=== PATIENT | female | born 1950 | race Caucasian/White ===

== ENCOUNTER 2022-03-06 18:14 | Observation (INO) | payer OTHER, BC ==
[2022-03-06 20:14] LABS: Absolute Lymphocytes (CBC) 0.3 K/uL (0.7-4.9); Lymphocytes % 7.3 % (15.3-44.8); MCV 91.4 fL (80-100); MPV 6.4 fL (7.6-11.3)
[2022-03-06 20:28] LABS: Albumin 3.3 g/dL (3.4-5.0); Potassium 4.1 mmol/L (3.5-5.1)
[2022-03-06 20:35] LABS: ALT/SGPT 25 U/L (12-78); AST/SGOT 25 U/L (15-37); Alkaline Phosphatase 108 U/L (45-117); Bilirubin Direct 0.2 mg/dL (0-0.2); Bilirubin Total 0.5 mg/dL (0.2-1.0); Protein, Total 6.7 g/dL (6.4-8.2)
--- NOTE | 2022-03-06 20:35 | RAD REPORT ---
EXAM DESCRIPTION: RAD - Chest Single View - 03/06/2022 8:03 pm CLINICAL HISTORY: SI, lung cancer, COPD COMPARISON: None TECHNIQUE: AP portable chest image was obtained 03/06/2022 8:03 pm . FINDINGS: Left-sided Port-A-Cath is in place. Fibrotic lung changes are present. No superimposed alejandro lure, infiltrate or mass. Hilar regions are within range of normal. Heart and vasculature are normal. No measurable pleural effusion and no pneumothorax. No acute bony abnormality seen. No acute aortic findings suspected. IMPRESSION: COPD with no acute cardiopulmonary finding seen
[2022-03-06 20:36] LABS: Troponin High Sensitivity 19.4 pg/mL (<58.9)
[2022-03-06 20:40] LABS: Protime INR 0.99
--- NOTE | 2022-03-06 21:26 | ER ---
Nurse's Notes [facility] Name: Ginger Huerta Age: 71 yrs Sex: Female : 1950 Arrival Date: 03/06/2022 Time: 18:32 Bed 16 Private MD: Diagnosis: Major depressive disorder, recurrent, moderate;Suicidal ideations Presentation: 03/06 18:37 Chief complaint: EMS states: toned out to [facility] due to Suicidal Ideation. Pt was eh3 at [facility] for a consult, pt reports having liver and lung cancer. Pt states, "I do not want to go there, my family wants me to go to [facility]." Pt reports being actively suicidal. Coronavirus screen: At this time, the client does not indicate any symptoms associated with coronavirus-19. Ebola Screen: No symptoms or risks identified at this time. Initial Sepsis Screen: Does the patient meet any 2 criteria? No. Patient's initial sepsis screen is negative. Does the patient have a suspected source of infection? No. Patient's initial sepsis screen is negative. Risk Assessment: Do you want to hurt yourself or someone else? Patient reports desire/thoughts of hurting themselves or someone else. Provider notified. Onset of symptoms was March 06, 2022. 18:37 Method Of Arrival: EMS: [facility] 18:37 Acuity: LILIAN 2 eh3 Triage Assessment: 18:41 General: Appears in no apparent distress. comfortable, Behavior is calm, cooperative, eh3 appropriate for age. Pain: Denies pain. EENT: No signs and/or symptoms were reported regarding the EENT system. Neuro: Level of Consciousness is awake, alert, obeys commands, Oriented to person, place, time, situation. Cardiovascular: Capillary refill < 3 seconds Patient's skin is warm and dry. Respiratory: Airway is patent Respiratory effort is even, unlabored. GI: Abdomen is flat, non-distended. : No signs and/or symptoms were reported regarding the genitourinary system. Derm: No signs and/or symptoms reported regarding the dermatologic system. Musculoskeletal: No signs and/or symptoms reported regarding the musculoskeletal system. Historical: - Allergies: 18:41 Benadryl; eh3 - Home Meds: 18:41 levothyroxine 100 mcg cap 1 cap once daily [Active]; Zyrtec 5 mg Oral tab 1 tab once eh3 daily [Active]; albuterol sulfate 2.5 mg/0.5 mL Inhl nebu 0.5 mL every 6 hours [Active]; rosuvastatin 5 mg oral tab 1 tab once daily [Active]; sertraline 100 mg oral tab 1 tab once daily [Active]; furosemide 20 mg Oral tab 1 tab once daily [Active]; trazodone 50 mg Oral tab 1 tab once daily [Active]; olanzapine 5 mg oral tab 1 tab once daily [Active]; donepezil 5 mg oral TbDi 1 tab once daily [Active]; tramadol 50 mg Oral tab 2 tabs every 6 hours [Active]; hydrocodone-acetaminophen 7.5-325 mg/15 mL Oral soln 15 mL every 4 hours [Active]; - PMHx: 18:41 COPD; Lung Cancer; Liver Cancer; Hypercholesterolemia; Depressive disorder; Anxiety; eh3 - PSHx: 18:41 Total abdominal hysterectomy; eh3 - Immunization history:: Adult Immunizations up to date, Client reports receiving the 2nd dose of the Covid vaccine. - Social history:: Smoking status: Patient reports the use of cigarette tobacco products, smokes one pack cigarettes per day. Patient/guardian denies using alcohol. - Family history:: not pertinent. Screenin:06 Abuse screen: na. Nutritional screening: No deficits noted. Tuberculosis screening: No ja4 symptoms or risk factors identified. Fall Risk None identified. Assessment: 21:06 General: Appears in no apparent distress. Behavior is calm, cooperative, Reports. ja4 Neuro: No deficits noted. Respiratory: No deficits noted. 03/07 03:39 Reassessment: pt resting in bed. no needs or issues at this time. ja4 05:11 Reassessment: barb from [facility] in [place] trying to give report and when ja4 told pt was on o2 intermittently pt has been refused for transfer there at the facility. provider will be notified. 05:39 Reassessment: beto from [facility] called for nurse to nurse report. 4 06:55 Reassessment: pt has been excepted to [facility]. 4 Psych: 03/06 21:20 [place] Suicide Severity Screening: In the past month, have you wished you were ja4 or wished you could go to sleep and not wake up? "In the past month, have you actually had any thoughts of killing yourself?" Patient responds "yes.". Subjective: Having thoughts of suicide. Plan for suicide is stab self or use pavement to kill self. Objective: Patient is cooperative, Speech is normal, Affect is appropriate. Interventions: Patient placed in hospital gown. Urine collected and sent for urine drug test. Safety Checks: Visitors are present. Pt denies substance abuse. Commitment: Patient will be a voluntary commitment. Vital Signs: 18:37 BP 112 / 61; Pulse 81; Resp 18; Temp 97.4(TE); Pulse Ox 97% on R/A; Weight 48.08 kg; eh3 Height 5 ft. 6 in. (167.64 cm); Pain 0/10; 03/07 02:31 BP 143 / 70; Pulse 78; Resp 19; Pulse Ox 100% 2 lpm ; ja4 05:04 BP 121 / 60; Pulse 88; Resp 20; Pulse Ox 98% on 2 lpm NC; ja4 03/06 18:37 Body Mass Index 17.11 (48.08 kg, 167.64 cm) eh3 [place] Coma Score: 03/06 21:06 Eye Response: spontaneous(4). Verbal Response: oriented(5). Motor Response: obeys ja4 commands(6). Total: 15. ED Course: 18:32 Patient arrived in ED. iw 18:41 Triage completed. eh3 18:41 Arm band placed on right wrist. Patient placed. EKG completed in triage. Results shown eh3 to MD. 19:43 Inserted saline lock: 20 gauge in right upper arm, using aseptic technique. Blood ld1 collected. 19:44 Riley Lomax MD is Attending Physician. [facility] 20:05 XRAY Chest (1 view) In Process Unspecified. EDMS 20:07 Joel Caceres, SRINIVASA is Primary Nurse. ja4 21:06 Safety Checks: Personal items have been removed. The door is open or patient has been ja4 placed in a hallway bed/chair. A family member and/or friend is present and encouraged to stay. 21:06 Patient has correct armband on for positive identification. Bed in low position. Side ja4 rails up X2. Adult w/ patient. 21:06 No provider procedures requiring assistance completed. Oxygen administration via nasal ja4 cannula \\T\\ 2L/min. 21:23 Suha Hawkins MD is Hospitalizing Provider. [facility] 21:59 Salicylate Sent. ja4 21:59 Urine Drug Screen Sent. ja 03/07 01:50 Initiated transfer to [facility] and denied due to capacity. 02:31 campus monitor on. Pulse ox on. NIBP on. ja4 04:30 Faxed all required documents to the following facilities to consider for placement; [facility], [facility], [facility], [facility], [facility], [facility], [facility], [facility], [facility], [facility]. 05:57 Pt. accepted for transfer by Dr. Nenita Rod at [facility], admin in charge, Alex Cochran. 07:52 Primary Nurse role handed off by Joel Caceres, RN lyn 07:52 Diane Barrientos RN is Primary Nurse. [facility] 08:57 IV discontinued, intact, bleeding controlled, No redness/swelling at site. Pressure jl7 dressing applied. Administered Medications: 03/06 21:59 Drug: NS 0.9% 500 ml Route: IV; Rate: bolus; Site: right antecubital; ja4 Medication: 21:06 VIS not applicable for this client. [facility] Outcome: 21:25 Decision to Hospitalize by Provider. [facility] 03/07 01:05 Admitted to ER Hold. Please see [facility] for further documentation. [facility] Condition: stable 01:42 ER care complete, transfer ordered by . [facility] 08:57 Transferred by ground EMS to other acute care facility: [facility]. [facility] 08:57 Condition: stable 08:57 Discharge instructions given to patient, family, Instructed on the need for transfer, Demonstrated understanding of instructions. 08:58 Patient left the ED. jl7 Signatures: Dispatcher [employer] EDMS Riley Lomax MD MD cha Williams, Irene, SIRNIVASA BERNABE Diane Barrientos RN RN jl7 Stacy Hodge RN RN [email or web address] Alejandra Camp Chen Starr RN RN 3 Joel Caceres, SRINIVASA RN ja4 Corrections: (The following items were deleted from the chart) 03/06 18:46 18:41 Allergies: No Known Allergies; eh3 eh3 18:49 18:37 Pulse 81bpm; Resp 18bpm; Pulse Ox 97% RA; Temp 97.4F Temporal; 48.08 kg; Height 5 eh3 ft. 6 in.; BMI: 17.1; Pain 0/10; 3
--- NOTE | 2022-03-06 21:26 | EDPHYS ---
Physician Documentation [facility] Name: Ginger Huerta Age: 71 yrs Sex: Female : 1950 Arrival Date: 03/06/2022 Time: 18:32 Bed 16 Private MD: ED Physician Rilye Lomax HPI: 03/06 21:17 This 71 yrs old Female presents to ER via EMS with complaints of Suicidal tianna Ideation. 21:17 The patient presents to the emergency department with depression, suicide ideation, and tianna the patient has a plan, to cut oneself and bleed. Onset: The symptoms/episode began/occurred 1 week(s) ago. Past psychiatric history: Prior diagnosis: depression. Associated signs and symptoms: Pertinent positives; depression, lung cancer , depression. Severity of symptoms: At their worst the symptoms were mild in the emergency department the symptoms are unchanged. The patient has not experienced similar symptoms in the past. Historical: - Allergies: 18:41 Benadryl; eh3 - Home Meds: 18:41 levothyroxine 100 mcg cap 1 cap once daily [Active]; Zyrtec 5 mg Oral tab 1 tab once eh3 daily [Active]; albuterol sulfate 2.5 mg/0.5 mL Inhl nebu 0.5 mL every 6 hours [Active]; rosuvastatin 5 mg oral tab 1 tab once daily [Active]; sertraline 100 mg oral tab 1 tab once daily [Active]; furosemide 20 mg Oral tab 1 tab once daily [Active]; trazodone 50 mg Oral tab 1 tab once daily [Active]; olanzapine 5 mg oral tab 1 tab once daily [Active]; donepezil 5 mg oral TbDi 1 tab once daily [Active]; tramadol 50 mg Oral tab 2 tabs every 6 hours [Active]; hydrocodone-acetaminophen 7.5-325 mg/15 mL Oral soln 15 mL every 4 hours [Active]; - PMHx: 18:41 COPD; Lung Cancer; Liver Cancer; Hypercholesterolemia; Depressive disorder; Anxiety; eh3 - PSHx: 18:41 Total abdominal hysterectomy; eh3 - Immunization history:: Adult Immunizations up to date, Client reports receiving the 2nd dose of the Covid vaccine. - Social history:: Smoking status: Patient reports the use of cigarette tobacco products, smokes one pack cigarettes per day. Patient/guardian denies using alcohol. - Family history:: not pertinent. ROS: 21:17 Constitutional: Negative for fever, chills, and weight loss, Eyes: Negative for injury, tianna pain, redness, and discharge, ENT: Negative for injury, pain, and discharge, Neck: Negative for injury, pain, and swelling, Cardiovascular: Negative for chest pain, palpitations, and edema, Respiratory: Negative for shortness of breath, cough, wheezing, and pleuritic chest pain, Abdomen/GI: Negative for abdominal pain, nausea, vomiting, diarrhea, and constipation, Back: Negative for injury and pain, : Negative for injury, bleeding, discharge, and swelling, MS/Extremity: Negative for injury and deformity, Skin: Negative for injury, rash, and discoloration, Neuro: Negative for headache, weakness, numbness, tingling, and seizure, Endocrine: Negative for neck swelling, polydipsia, polyuria, polyphagia, and marked weight changes, Hematologic/Lymphatic: Negative for swollen nodes, abnormal bleeding, and unusual bruising. 21:17 Psych: Positive for anxiety, depression, suicidal ideation. Exam: 21:17 Constitutional: This is a well developed, well nourished patient who is awake, alert, tianna and in no acute distress. Head/Face: Normocephalic, atraumatic. Eyes: Pupils equal round and reactive to light, extra-ocular motions intact. Lids and lashes normal. Conjunctiva and sclera are non-icteric and not injected. Cornea within normal limits. Periorbital areas with no swelling, redness, or edema. ENT: Nares patent. No nasal discharge, no septal abnormalities noted. Tympanic membranes are normal and external auditory canals are clear. Oropharynx with no redness, swelling, or masses, exudates, or evidence of obstruction, uvula midline. Mucous membranes moist. Neck: Trachea midline, no thyromegaly or masses palpated, and no cervical lymphadenopathy. Supple, full range of motion without nuchal rigidity, or vertebral point tenderness. No Meningismus. Chest/axilla: Normal chest wall appearance and motion. Nontender with no deformity. No lesions are appreciated. Cardiovascular: Regular rate and rhythm with a normal S1 and S2. No gallops, murmurs, or rubs. Normal PMI, no JVD. No pulse deficits. Abdomen/GI: Soft, non-tender, with normal bowel sounds. No distension or tympany. No guarding or rebound. No evidence of tenderness throughout. Back: No spinal tenderness. No costovertebral tenderness. Full range of motion. Skin: Warm, dry with normal turgor. Normal color with no rashes, no lesions, and no evidence of cellulitis. MS/ Extremity: Pulses equal, no cyanosis. Neurovascular intact. Full, normal range of motion. Neuro: Awake and alert, GCS 15, oriented to person, place, time, and situation. Cranial nerves II-XII grossly intact. Motor strength 5/5 in all extremities. Sensory grossly intact. Cerebellar exam normal. Normal gait. 21:17 ECG was reviewed by the Attending Physician. 21:17 Respiratory: the patient does not display signs of respiratory distress, Respirations: normal, no acute changes, is not noted, Breath sounds: rhonchi, that are mild, Respiratory rate: 18 Vital Signs: 18:37 BP 112 / 61; Pulse 81; Resp 18; Temp 97.4(TE); Pulse Ox 97% on R/A; Weight 48.08 kg; eh3 Height 5 ft. 6 in. (167.64 cm); Pain 0/10; 08 02:31 BP 143 / 70; Pulse 78; Resp 19; Pulse Ox 100% 2 lpm ; ja4 05:04 BP 121 / 60; Pulse 88; Resp 20; Pulse Ox 98% on 2 lpm NC; ja4 03/06 18:37 Body Mass Index 17.11 (48.08 kg, 167.64 cm) eh3 [place] Coma Score: 03/06 21:06 Eye Response: spontaneous(4). Verbal Response: oriented(5). Motor Response: obeys ja4 commands(6). Total: 15. MDM: 19:44 Patient medically screened. [facility] 21:22 Differential diagnosis: drug withdrawal. depression. Data reviewed: vital signs, nurses tianna notes, lab test result(s), EKG. Data interpreted: nurse monitoring: not applicable for this patient encounter. rhythm is regular, Pulse oximetry: on room air is 97 %. Test interpretation: by ED physician or midlevel provider: ECG. Counseling: I had a detailed discussion with the patient and/or guardian regarding: the historical points, exam findings, and any diagnostic results supporting the discharge/admit diagnosis, lab results, the need for further work-up and treatment in the hospital. 03/06 19:31 Order name: Basic Metabolic Panel; Complete Time: 21: [facility] 03/06 19:31 Order name: CBC with Diff; Complete Time: 21: [facility] 03/06 19:31 Order name: Troponin HS; Complete Time: 21: [facility] 03/06 19:46 Order name: Acetaminophen; Complete Time: 21: [facility] 03/06 19:46 Order name: ETOH Level; Complete Time: 21: [facility] 03/06 19:46 Order name: Hepatic Function; Complete Time: 21: [facility] 03/06 19:31 Order name: XRAY Chest (1 view); Complete Time: : [facility] 03/06 19:46 Order name: PT-INR; Complete Time: 21: [facility] 03/06 19:46 Order name: Ptt, Activated; Complete Time: 21: [facility] 03/06 19:46 Order name: Salicylate; Complete Time: 23:12 [facility] 03/06 19:46 Order name: Urine Drug Screen; Complete Time: 23:12 [facility] 03/06 22:10 Order name: Urine Dipstick-Ancillary; Complete Time: 23:12 [facility] 03/07 01:55 Order name: SARS RAPID 03/07 02:46 Order name: SARS-COV-2 Antigen Rapid; Complete Time: 07:33 [facility] 03/06 18:48 Order name: EKG - Nurse/Tech; Complete Time: 18:48 [facility] 03/06 19:31 Order name: EKG; Complete Time: 19:33 [facility] 03/06 19:31 Order name: Cardiac monitoring; Complete Time: 21:32 [facility] 03/06 19:31 Order name: EKG - Nurse/Tech; Complete Time: 19:32 [facility] 03/06 19:31 Order name: IV Saline Lock; Complete Time: 19:43 [facility] 03/06 19:31 Order name: Labs collected and sent; Complete Time: 19:43 [facility] 03/06 19:31 Order name: O2 Per Protocol; Complete Time: 21:32 [facility] 03/06 19:31 Order name: O2 Sat Monitoring; Complete Time: 21:32 [facility] 03/06 19:46 Order name: Suicide Screening ([place]); Complete Time: 03:44 [facility] 03/06 19:46 Order name: Urine Dipstick-Ancillary (obtain specimen); Complete Time: 03:16 tianna 03/06 19:46 Order name: Suicide Precautions; Complete Time: 07:52 [facility] 03/07 07:29 Order name: Diet Finger Food; Complete Time: 07:34 EC:17 Rate is 77 beats/min. Rhythm is regular. QRS [place] is Normal. AL interval is normal. QRS tianna interval is normal. QT interval is normal. No Q waves. T waves are Normal. Clinical impression: Normal ECG and No evidence of ischemia. Interpreted by me. Reviewed by me. Administered Medications: 21:59 Drug: NS 0.9% 500 ml Route: IV; Rate: bolus; Site: right antecubital; ja4 Disposition Summary: 03/07/22 01:42 Transfer Ordered Transfer Location: Psych Facility tianna Reason: Higher level of care tianna Condition: Fair(03/07/22 01:42) tianna Problem: new(03/07/22 01:42) tianna Symptoms: have improved(03/07/22 01:42) tianna Accepting Physician: TO PSYCH(03/07/22 08:58) jlHeide Diagnosis - Major depressive disorder, recurrent, moderate(03/07/22 01:42) tianna - Suicidal ideations(03/07/22 01:42) tianna Forms: - Medication Reconciliation Form tianna - SBAR form tianna Signatures: Dispatcher [employer] EDMS Riley Lomax MD MD cha Leal, Jahala RN RN jl7 Sharla Fernandez RN RN eb1 Stacy Hodge RN RN [email or web address] Belle Carias PA PA sb3 Chen Starr RN RN eh3 Joel Caceres, RN RN ja4 Corrections: (The following items were deleted from the chart) 18:46 18:41 Allergies: No Known Allergies; 3 3 22:23 21:25 Telemetry/MedSurg (observation) [facility] 22:23 21:25 tianna 1 03/07 01:41 03/06 21:25 Observation tianna [facility] 03/07 01:41 03/06 21:25 HawkinsNelly corteslaura [facility] 03/07 01:41 03/06 21:25 Fair [facility] 03/07 01:41 03/06 21:25 new [facility] 03/07 01:03/06 21:25 have improved tianna [facility] 03/07 01:03/06 21:25 Standard tianna [facility] 03/07 01:03/06 21:25 Major depressive disorder, recurrent, moderate tianna [facility] 03/07 01:03/06 21:25 Dementia in other diseases classified elsewhere without behavioral tianna disturbance [facility] 03/07 01:03/06 21:25 Suicidal ideations tianna [facility] 03/07 01:03/06 22:23 [facility] ER HOLD eb1 [facility] 03/07 01:03/06 22:23 ERHOLD- eb1 [facility] 03/07 08:58 01:42 TO PSYCH tianna jl7
[2022-03-06] MEDS ORDERED: NA CHLORIDE 0.9% 500 ML ONE (21:40)
[2022-03-06 22:10] LABS: Urine Blood Negative (Negative); Urine Glucose Negative (Negative); Urine Protein Negative (Negative)
[2022-03-06 22:32] LABS: Barbiturates NEGATIVE (NEGATIVE); Benzodiazepines NEGATIVE (NEGATIVE); Cocaine NEGATIVE (NEGATIVE); METHAMPHETAM NEGATIVE (NEGATIVE); Methadone NEGATIVE (NEGATIVE); Opiates NEGATIVE (NEGATIVE); Phencyclidine NEGATIVE (NEGATIVE); THC Cannibis NEGATIVE (NEGATIVE)
--- NOTE | 2022-03-07 00:18 | P.HP ---
Certification for Inpatient Patient admitted to: Observation With expected LOS: <2 Midnights Patient will require the following post-hospital care: None Practitioner: I am a practitioner with admitting privileges, knowledge of patient current condition, hospital course, and medical plan of care. Services: Services provided to patient in accordance with Admission requirements found in Title 42 Section 412.3 of the Code of Federal Regulations Patient History Date of Service: 03/07/22 Reason for admission: Suicidal Ideations Allergies No Known Allergies Allergy (Verified 11/07/15 09:12) Home medications list reviewed: Yes Home Medications: Cetirizine HCl [Zyrtec] 5 mg PO DAILY PRN 11/07/15 Levothyroxine Sodium [Unithroid] 50 mcg PO DAILY 11/07/15 lisinopriL [Prinivil] 5 mg PO DAILY 11/07/15 - Past Medical/Surgical History Diabetic: No -: Lung Cancer -: Liver Cancer -: Hypothyroidism -: Major Depressive Disorder -: Hypertension -: COPD -: Hysterectomy Psychosocial/ Personal History: Patient [facility]. - Family History Family History: Reviewed- Non-Contributory - Social History Smoking Status: Current every day smoker Alcohol use: No CD- Drugs: No Caffeine use: Yes Place of Residence: Home Review of Systems Suicidal Physical Examination - Physical Exam General: Alert, Oriented x3 HEENT: Atraumatic, PERRLA, Mucous membr. moist/pink, EOMI, Sclerae nonicteric Neck: Supple, No LAD Respiratory: Clear to auscultation bilaterally, Normal air movement Cardiovascular: Regular rate/rhythm, Normal S1 S2 Gastrointestinal: Normal bowel sounds, No tenderness Musculoskeletal: No tenderness Integumentary: No rashes Neurological: Normal speech, Normal strength at 5/5 x4 extr, Normal tone, Normal affect - Studies Laboratory Data (last 24 hrs) 03/06/22 19:46: WBC 4.6, Hgb 11.0 L, Hct 32.0 L, Plt Count 217 03/06/22 19:46: Sodium 136, Potassium 4.1, BUN 13, Creatinine 0.92, Glucose 98 03/06/22 19:46: PT 10.9, INR 0.99, APTT 35.5 03/06/22 19:46: Total Bilirubin 0.5, AST 25, ALT 25, Alkaline Phosphatase 108 Assessment and Plan - Problems (Diagnosis) (1) Suicidal ideations Current Visit: Yes Status: Acute (2) Major depressive disorder Current Visit: Yes Status: Acute Qualifiers: Major depression recurrence: recurrent Active/Remission status: currently active Major depression episode severity: severe Psychotic features: with psychotic features Qualified Code(s): F33.3 - Major depressive disorder, recurrent, severe with psychotic symptoms (3) COPD (chronic obstructive pulmonary disease) Current Visit: Yes Status: Chronic Qualifiers: COPD type: unspecified COPD Qualified Code(s): J44.9 - Chronic obstructive pulmonary disease, unspecified (4) Hypothyroidism Current Visit: Yes Status: Chronic Qualifiers: Hypothyroidism type: acquired Qualified Code(s): E03.9 - Hypothyroidism, unspecified (5) Hypertension Current Visit: Yes Status: Chronic Qualifiers: Hypertension type: primary hypertension Qualified Code(s): I10 - Essential (primary) hypertension (6) Lung cancer Current Visit: Yes Status: Chronic Qualifiers: Laterality: unspecified laterality Lung location: unspecified part of lung Qualified Code(s): C34.90 - Malignant neoplasm of unspecified part of unspecified bronchus or lung (7) Liver cancer Current Visit: Yes Status: Chronic Qualifiers: Liver malignancy type: unspecified liver malignancy Qualified Code(s): C22.9 - Malignant neoplasm of liver, not specified as primary or secondary Discharge Plan: Other Plan to discharge in: 24 Hours - Advance Directives Does patient have a Living Will: No Does patient have a Durable POA for Healthcare: Yes - Code Status/Comfort Care Code Status Assessed: Yes (Full) Critical Care: No Time Spent Managing Pts Care (In Minutes): 50
--- NOTE | 2022-03-07 00:58 | P.CNS ---
Date of Consult: 03/07/22 Reason for Consult: Medical Management Chief Complaint: Suicidal Ideations Allergies No Known Allergies Allergy (Verified 11/07/15 09:12) Home medications list reviewed: Yes Home Medications: Cetirizine HCl [Zyrtec] 5 mg PO DAILY PRN 11/07/15 Levothyroxine Sodium [Unithroid] 50 mcg PO DAILY 11/07/15 lisinopriL [Prinivil] 5 mg PO DAILY 11/07/15 - Past Medical/Surgical History -: COPD -: Liver Cancer -: Lung Cancer -: Hypertension -: Hypothyroidism -: Hyperlipidemia -: Hysterectomy Psychosocial/ Personal History: Patient is . - Social History Smoking Status: Current every day smoker Alcohol use: No CD- Drugs: No Caffeine use: Yes Place of Residence: Home Review of Systems 10-point ROS is otherwise unremarkable Physical Examination General: Alert, In no apparent distress HEENT: Atraumatic, PERRLA, Mucous membr. moist/pink, EOMI, Sclerae nonicteric Neck: Supple, 2+ carotid pulse no bruit, No LAD, Without JVD or thyroid abnormality Respiratory: Clear to auscultation bilaterally, Normal air movement Cardiovascular: Regular rate/rhythm, Normal S1 S2 Gastrointestinal: Normal bowel sounds, No tenderness Musculoskeletal: No tenderness Integumentary: No rashes Neurological: Normal gait, Normal speech, Normal tone, Abnormal affect Laboratory Data (last 24 hrs) 03/06/22 19:46: WBC 4.6, Hgb 11.0 L, Hct 32.0 L, Plt Count 217 03/06/22 19:46: Sodium 136, Potassium 4.1, BUN 13, Creatinine 0.92, Glucose 98 03/06/22 19:46: PT 10.9, INR 0.99, APTT 35.5 03/06/22 19:46: Total Bilirubin 0.5, AST 25, ALT 25, Alkaline Phosphatase 108 - Problems (1) Suicidal ideations Current Visit: Yes Status: Acute (2) Major depressive disorder Current Visit: Yes Status: Acute Qualifiers: Major depression recurrence: recurrent Active/Remission status: currently active Major depression episode severity: severe Psychotic features: with psychotic features Qualified Code(s): F33.3 - Major depressive disorder, recurrent, severe with psychotic symptoms (3) COPD (chronic obstructive pulmonary disease) Current Visit: Yes Status: Chronic Qualifiers: COPD type: unspecified COPD Qualified Code(s): J44.9 - Chronic obstructive pulmonary disease, unspecified (4) Hypothyroidism Current Visit: Yes Status: Chronic Qualifiers: Hypothyroidism type: acquired Qualified Code(s): E03.9 - Hypothyroidism, unspecified (5) Hypertension Current Visit: Yes Status: Chronic Qualifiers: Hypertension type: primary hypertension Qualified Code(s): I10 - Essential (primary) hypertension (6) Lung cancer Current Visit: Yes Status: Chronic Qualifiers: Laterality: unspecified laterality Lung location: unspecified part of lung Qualified Code(s): C34.90 - Malignant neoplasm of unspecified part of unspecified bronchus or lung (7) Liver cancer Current Visit: Yes Status: Chronic Qualifiers: Liver malignancy type: unspecified liver malignancy Qualified Code(s): C22.9 - Malignant neoplasm of liver, not specified as primary or secondary Critical Care: No Time Spent Managing Pts care (In Minutes): 50
[2022-03-07 01:27] VITALS: BMI 14.2
[2022-03-07 02:45] LABS: SARS-CoV-2 Antigen Rapid Res Negative (Negative)
[2022-03-07 09:12] VITALS: TEMP 97.4
[2022-03-07 09:20] VITALS: BP 121/60; O2SAT 98
--- NOTE | 2022-03-07 14:32 | EKG ---
Test Date: 2022-03-06 Test Time: 18:49:09 Keyboard Teacher: TORI MEASUREMENT RESULTS: Intervals: Rate: 77 NV: 152 QRSD: 80 QT: 390 QTc: 441 [place]: P: 85 NV: 152 QRS: 86 T: 88 INTERPRETIVE STATEMENTS: Normal sinus rhythm Normal ECG Compared to ECG 04/15/1994 08:29:00 No significant changes Electronically Signed On 03-07-22 14:30:33 CDT by Sav Asher
== END 2022-03-07 09:22 ==
LOC: ER 18:14 → ERHOLD 03-07 00:11
PROVIDERS: ADMIT Hospitalist; ATTEND Hospitalist
DX: F33.1 Major depressive disorder, recurrent, moderate (principal); R45.851 Suicidal ideations; C34.90 Malignant neoplasm of unspecified part of unspecified bronchus or lung; C22.8 Malignant neoplasm of liver, primary, unspecified as to type; J44.9 Chronic obstructive pulmonary disease, unspecified; F41.9 Anxiety disorder, unspecified; E78.00 Pure hypercholesterolemia, unspecified; F17.210 Nicotine dependence, cigarettes, uncomplicated; Z79.899 Other long term (current) drug therapy; Z88.8 Allergy status to other drugs, medicaments and biological substances; Z90.710 Acquired absence of both cervix and uterus; Z20.822 Contact with and (suspected) exposure to COVID-19
CPT/HCPCS: 36415; 71045; 80048; 80076; 80307; 80320; 80329; 81003; 84484; 85025; 85610; 85730; 87811; 93005; J7040

== ENCOUNTER 2022-08-09 19:27 | Inpatient (IN) | payer OTHER, BC ==
[2022-08-09] MEDS ORDERED: LEVALBUTEROL 1.25 MG/3 ML NEB ONE (19:53)
[2022-08-09 19:54] LABS: Absolute Lymphocytes (CBC) 0.2 K/uL (0.7-4.9); Hematocrit 32.4 % (36.0-45.0); Lymphocytes % 1.8 % (15.3-44.8); MCV 94.6 fL (80-100); MPV 6.5 fL (7.6-11.3); RBC Red Blood Cell Count 3.43 M/uL (3.86-4.86)
[2022-08-09 20:08] LABS: Potassium 3.6 mmol/L (3.5-5.1)
[2022-08-09 20:12] LABS: Troponin High Sensitivity 23.1 pg/mL (<58.9)
--- NOTE | 2022-08-09 20:18 | RAD REPORT ---
EXAM DESCRIPTION: Emmy Single View08/09/2022 8:10 pm CLINICAL HISTORY: Shortness of breath COMPARISON: February 2022 FINDINGS: Lungs are markedly hyperaerated. Patient's known small right lung lesion not clearly visualized on this exam. Mild chronic opacities medial right lung. The lungs appear clear of acute infiltrate. The heart is n ormal size Central venous catheter in place IMPRESSION: COPD without visualization of an acute abnormality
[2022-08-09] MEDS ORDERED: NA CHLORIDE 0.9% 500 ML ONE (20:58)
[2022-08-09 21:11] LABS: Blood Morphology Comment NOT SEEN (NOT SEEN); Platelet Estimate ADEQ
[2022-08-09 21:12] LABS: Arterial Blood Carboxyhemoglob 5.4 % (0-1.5); Blood Gas Oxyhemoglobin 85.7 % (94-97); Blood O2 Saturation 91.6 % (92-98.5)
[2022-08-09 21:30] LABS: T3 Free 0.64 pg/mL (2.18-3.98); Thyroid Stimulating Hormone 0.977 uIU/mL (0.358-3.740)
--- NOTE | 2022-08-09 22:06 | ER ---
Nurse's Notes [facility] Name: Ginger Huerta Age: 71 yrs Sex: Female : 1950 Arrival Date: 08/09/2022 Time: 19:28 Bed 3 Private MD: Diagnosis: Shortness of breath;Weakness;Diarrhea, unspecified;Dehydration Presentation: 08/09 19:29 Chief complaint: EMS states: Pt reports shortness of breath for the past few days. Was jb4 81% on 3L NC. she has a 20g IV to the right fore arm. History of stage 4 lung cancer. Coronavirus screen: At this time, the client does not indicate any symptoms associated with coronavirus-19. Ebola Screen: No symptoms or risks identified at this time. Initial Sepsis Screen: Does the patient meet any 2 criteria? HR > 90 bpm. Yes Does the patient have a suspected source of infection? No. Patient's initial sepsis screen is negative. Risk Assessment: Do you want to hurt yourself or someone else? Patient reports no desire to harm self or others. Onset of symptoms was August 06, 2022. Transition of care: patient was not received from another setting of care. 19:29 Method Of Arrival: EMS: [facility] jb4 19:29 Acuity: LILIAN 2 jb4 Historical: - Allergies: 19:31 Benadryl; jb4 - Home Meds: 19:31 trazodone 50 mg Oral tab 1 tab once daily [Active]; levothyroxine 100 mcg cap 1 cap jb4 once daily [Active]; sertraline 100 mg Oral tab 1 tab once daily [Active]; Zyrtec 5 mg Oral tab 1 tab once daily [Active]; Trelegy Ellipta inhalation [Active]; lactobacillus [Active]; olanzapine 5 mg Oral tab 1 tab once daily [Active]; donepezil 5 mg Oral TbDi 1 tab once daily [Active]; liothyronine oral [Active]; rosuvastatin 5 mg Oral tab 1 tab once daily [Active]; Daliresp 500 mcg oral tab 1 tab once daily [Active]; albuterol sulfate 2.5 mg/0.5 mL Inhl nebu 0.5 mL every 6 hours [Active]; furosemide 20 mg Oral tab 1 tab once daily [Active]; memantine oral [Active]; midodrine oral [Active]; phenergan [Active]; - PMHx: 19:31 Anxiety; depressive disorder; liver cancer; Lung Cancer; Hypercholesterolemia; COPD; jb4 - PSHx: 19:31 Total abdominal hysterectomy; jb4 - Immunization history:: Adult Immunizations up to date. - Social history:: Smoking status: Patient reports the use of cigarette tobacco products. Screenin:[facility] ED Fall Risk Assessment (Adult) History of falling in the last 3 months, bb including since admission No falls in past 3 months (0 pts) Confusion or Disorientation No (0 pts) Intoxicated or Sedated No (0 pts) Impaired Gait Yes (1 pt) Score/Fall Risk Level 0 - 2 = Low Risk Oriented to surroundings, Maintained a safe environment. Abuse screen: Denies threats or abuse. Nutritional screening: No deficits noted. Tuberculosis screening: No symptoms or risk factors identified. Assessment: 19:30 General: Appears uncomfortable, ill, cachectic, Behavior is calm, cooperative. Pain: bb Complains of pain in all over. Neuro: Level of Consciousness is awake, alert, Oriented to person, place, time, situation. Cardiovascular: Capillary refill < 3 seconds Patient's skin is warm and dry. Respiratory: Respiratory effort is labored, Respiratory pattern is tachypnea Breath sounds are diminished bilaterally. GI: No signs and/or symptoms were reported involving the gastrointestinal system. Derm: Skin is fragile, is thin, Skin is pale, Skin temperature is warm. Musculoskeletal: Circulation, motion, and sensation intact. 20:51 Reassessment: pt resp labored, tachypneic, heart rate in the 140s Dr Frye notified bb awaiting new orders. 21:00 Reassessment: Pt's family member states pt O2\T\ at home usually in the low 90s on 2 Lpm bb now it is 88% O2 increased to 4 Lpm. 21:50 Reassessment: Patient appears in no apparent distress at this time. Patient and/or jb4 family updated on plan of care and expected duration. Pain level reassessed. Respirations remain labored and tachypneic, pt remains on O2. 23:02 Reassessment: pt is A\T\O x 3, resp labored, family at bedside awaiting room assignment. bb 08/10 00:33 Reassessment: report called to Kendra BERNABE for room 205. bb 01:15 Reassessment: pt A\T\O x 3, resp labored, IV site intact, patent, family at bedside, pt bb transferred to room 205 via stretcher accompanied by cardio tech and family. Vital Signs: 08/09 19:29 BP 135 / 62; Pulse 104; Resp 20; Temp 98.4; Pulse Ox 97% on 3.5 lpm NC; Weight 56.25 kg jb4 (R); Height 6 ft. 9 in. (205.74 cm) (R); Pain 10/10; 20:52 BP 143 / 71; Pulse 142; Resp 24; Pulse Ox 91% on 2 lpm NC; bb 21:06 BP 139 / 60; Pulse 111; Resp 25; Pulse Ox 93% on 4 lpm NC; jb4 21:50 BP 136 / 64; Pulse 105; Resp 24; Pulse Ox 91% on 4.5 lpm NC; jb4 23:02 BP 123 / 58; Pulse 106; Resp 24 S; Temp 98.2(O); Pulse Ox 91% on 4.5 lpm NC; bb 23:46 BP 131 / 60; Pulse 109; Resp 23; Pulse Ox 87% on 4.5 lpm NC; jb4 19:29 Body Mass Index 13.29 (56.25 kg, 205.74 cm) jb4 23:46 Admitting provider notied, put on 6L Remained at 88-89% put on non-rebreather per jb4 Admitting provider for Ct, RT paged for High flow nasal cannula. ED Course: 19:28 Patient arrived in ED. jb4 19:29 Roc Frye MD is Attending Physician. kdr 19:30 Patient has correct armband on for positive identification. Placed in gown. Bed in low bb position. Call light in reach. Side rails up X2. monitoring analyst on. Pulse ox on. NIBP on. Warm blanket given. 19:31 Triage completed. jb4 19:31 Arm band placed on. jb4 19:44 Initial lab(s) drawn, by me, sent to lab. bb 19:48 Win Santos, RN is Primary Nurse. jb4 19:49 Troponin HS Sent. jb4 19:49 CBC with Diff Sent. jb4 19:49 NT PRO-BNP Sent. jb4 19:49 Basic Metabolic Panel Sent. jb4 20:13 XRAY Chest (1 view) In Process Unspecified. EDMS 22:05 Bandar Rod is Hospitalizing Provider. kdr Administered Medications: 19:56 Drug: Xopenex (levalbuterol) (3) 1.25 mg Route: Inhalation; jb4 21:00 Drug: NS 0.9% 500 ml Route: IV; Rate: bolus; Site: right forearm; bb 22:00 Follow up: IV Status: Completed infusion; IV Intake: 450ml bb Medication: 19:30 VIS not applicable for this client. bb Intake: 22:00 IV: 450ml; Total: 450ml. bb Outcome: 22:06 Decision to Hospitalize by Provider. kdr 08/10 01:18 Patient left the ED. jb4 Signatures: Dispatcher [employer] EDMS Roc Frye MD MD kdr Yessy Maxwell RN RN bb Win Santos, SRINIVASA RN jb4 Corrections: (The following items were deleted from the chart) 01:16 08/09 21:50 Reassessment: Patient appears in no apparent distress at this time. Patient jb4 and/or family updated on plan of care and expected duration. Pain level reassessed. Patient is alert, oriented x 3, equal unlabored respirations, skin warm/dry/pink. jb4
--- NOTE | 2022-08-09 22:06 | EDPHYS ---
Physician Documentation [facility] Name: Ginger Huerta Age: 71 yrs Sex: Female : 1950 Arrival Date: 08/09/2022 Time: 19:28 Bed 3 Private MD: ED Physician Roc Frye HPI: 08/10 03:30 This 71 yrs old Female presents to ER via EMS with unknown complaint. kdr 03:30 This 71 yrs old Female presents to ER via EMS with complaints of Shortness of breath, kdr hypoxia, percent on 3 L nasal cannula. 03:30 Patient was brought to the ED by EMS. At the skilled nursing she was noted to have an 81% kdr saturation on 3 L nasal cannula. She does have a history of lung cancer, stage IV. Fever. She has had diarrhea. She denies vomiting.. Onset: The symptoms/episode began/occurred gradually, 1 week(s) ago. Severity of symptoms: At their worst the symptoms were mild moderate just prior to arrival, in the emergency department the symptoms are unchanged. The patient has experienced similar episodes in the past, chronically. The patient has not recently seen a physician. Historical: - Allergies: 08/09 19:31 Benadryl; jb4 - Home Meds: 19:31 trazodone 50 mg Oral tab 1 tab once daily [Active]; levothyroxine 100 mcg cap 1 cap jb4 once daily [Active]; sertraline 100 mg Oral tab 1 tab once daily [Active]; Zyrtec 5 mg Oral tab 1 tab once daily [Active]; Trelegy Ellipta inhalation [Active]; lactobacillus [Active]; olanzapine 5 mg Oral tab 1 tab once daily [Active]; donepezil 5 mg Oral TbDi 1 tab once daily [Active]; liothyronine oral [Active]; rosuvastatin 5 mg Oral tab 1 tab once daily [Active]; Daliresp 500 mcg oral tab 1 tab once daily [Active]; albuterol sulfate 2.5 mg/0.5 mL Inhl nebu 0.5 mL every 6 hours [Active]; furosemide 20 mg Oral tab 1 tab once daily [Active]; memantine oral [Active]; midodrine oral [Active]; phenergan [Active]; - PMHx: 19:31 Anxiety; depressive disorder; liver cancer; Lung Cancer; Hypercholesterolemia; COPD; jb4 - PSHx: 19:31 Total abdominal hysterectomy; jb4 - Immunization history:: Adult Immunizations up to date. - Social history:: Smoking status: Patient reports the use of cigarette tobacco products. ROS: 08/10 03:30 Constitutional: Negative for fever, chills, and weight loss, Eyes: Negative for injury, kdr pain, redness, and discharge, ENT: Negative for injury, pain, and discharge, Neck: Negative for injury, pain, and swelling, Cardiovascular: Negative for chest pain, palpitations, and edema, Abdomen/GI: Negative for abdominal pain, nausea, vomiting, diarrhea, and constipation, Back: Negative for injury and pain, : Negative for injury, bleeding, discharge, and swelling, MS/Extremity: Negative for injury and deformity, Skin: Negative for injury, rash, and discoloration, Neuro: Negative for headache, weakness, numbness, tingling, and seizure activity. Psych: Negative for depression, anxiety, suicide ideation, homicidal ideation, and hallucinations, Allergy/Immunology: Negative for hives, rash, and allergies, Endocrine: Negative for neck swelling, polydipsia, polyuria, polyphagia, and marked weight changes, Hematologic/Lymphatic: Negative for swollen nodes, abnormal bleeding, and unusual bruising. Respiratory: Positive for cough, shortness of breath, at rest. Negative for hemoptysis, sputum production. Exam: 03:30 Constitutional: This is a well developed, well nourished patient who is awake, alert, kdr and in no acute distress. Head/Face: Normocephalic, atraumatic. Eyes: Pupils equal round and reactive to light, extra-ocular motions intact. Lids and lashes normal. Conjunctiva and sclera are non-icteric and not injected. Cornea within normal limits. Periorbital areas with no swelling, redness, or edema. Neck: Trachea midline, no thyromegaly or masses palpated, and no cervical lymphadenopathy. Supple, full range of motion without nuchal rigidity, or vertebral point tenderness. No Meningismus. Chest/axilla: Normal chest wall appearance and motion. Nontender with no deformity. No lesions are appreciated. Cardiovascular: Regular rate and rhythm with a normal S1 and S2. No gallops, murmurs, or rubs. Normal PMI, no JVD. No pulse deficits. Abdomen/GI: Soft, non-tender, with normal bowel sounds. No distension or tympany. No guarding or rebound. No evidence of tenderness throughout. Back: No spinal tenderness. No costovertebral tenderness. Full range of motion. Skin: Warm, dry with normal turgor. Normal color with no rashes, no lesions, and no evidence of cellulitis. MS/ Extremity: Pulses equal, no cyanosis. Neurovascular intact. Full, normal range of motion. Neuro: Awake and alert, GCS 15, oriented to person, place, time, and situation. Cranial nerves II-XII grossly intact. Motor strength 5/5 in all extremities. Sensory grossly intact. Cerebellar exam normal. Normal gait. Psych: Awake, alert, with orientation to person, place and time. Behavior, mood, and affect are within normal limits. 03:30 Respiratory: mild respiratory distress is noted, Respirations: labored breathing, that is mild, Breath sounds: rales, that are mild, are scattered, are heard diffusely. Vital Signs: 08/09 19:29 BP 135 / 62; Pulse 104; Resp 20; Temp 98.4; Pulse Ox 97% on 3.5 lpm NC; Weight 56.25 kg jb4 (R); Height 6 ft. 9 in. (205.74 cm) (R); Pain 10/10; 20:52 BP 143 / 71; Pulse 142; Resp 24; Pulse Ox 91% on 2 lpm NC; bb 21:06 BP 139 / 60; Pulse 111; Resp 25; Pulse Ox 93% on 4 lpm NC; jb4 21:50 BP 136 / 64; Pulse 105; Resp 24; Pulse Ox 91% on 4.5 lpm NC; jb4 23:02 BP 123 / 58; Pulse 106; Resp 24 S; Temp 98.2(O); Pulse Ox 91% on 4.5 lpm NC; bb 23:46 BP 131 / 60; Pulse 109; Resp 23; Pulse Ox 87% on 4.5 lpm NC; jb4 19:29 Body Mass Index 13.29 (56.25 kg, 205.74 cm) jb4 23:46 Admitting provider notied, put on 6L Remained at 88-89% put on non-rebreather per jb4 Admitting provider for Ct, RT paged for High flow nasal cannula. MDM: 22:06 Patient medically screened. [facility] 08/10 03:30 Data reviewed: vital signs, nurses notes, lab test result(s), radiologic studies. kdr Consideration of Admission/Observation Patient was admitted/placed on observation. Escalation of care including admission/observation considered. Management of patient was discussed with the following: Hospitalist: DARCY. I considered the following discharge prescriptions or medication management in the emergency department Antihypertensives: At this time antihypertensives are not recommended. We recommend home blood pressure checks and following up with primary care provider, Antivirals: At this time, antivirals are not recommended, Pain Medications: At this time, prescription pain medications are not recommended, Medications were administered in the Emergency Department. See MAR. Independent interpretation of the following test(s) in the Emergency Department EKG: See my EKG interpretation above. Test considered but Not performed: EKG: Sinus tachycardia. Labs: Cardiac order set. 08/09 19:30 Order name: Basic Metabolic Panel; Complete Time: 20:54 kdr 08/09 19:30 Order name: CBC with Diff; Complete Time: 22:32 kdr 08/09 19:30 Order name: NT PRO-BNP; Complete Time: 20:54 kdr 08/09 19:30 Order name: Troponin HS; Complete Time: 20:54 kdr 08/09 19:40 Order name: ABG; Complete Time: 22:32 kdr 08/09 20:19 Order name: Manual Differential; Complete Time: 22:32 EDMS 08/09 19:30 Order name: XRAY Chest (1 view); Complete Time: 20:54 [facility] 08/09 20:52 Order name: TSH; Complete Time: 22:32 kdr 08/09 20:52 Order name: T3 Free; Complete Time: 22:32 kdr 08/09 20:52 Order name: T4 Free; Complete Time: 22:32 kdr 08/09 22:10 Order name: SARS RAPID; Complete Time: 22:53 kl 08/09 23:09 Order name: Chest For PE Angio CT sb4 08/09 19:30 Order name: EKG; Complete Time: 19:30 kdr 08/09 19:30 Order name: Cardiac monitoring; Complete Time: 19:44 kdr 08/09 19:30 Order name: EKG - Nurse/Tech; Complete Time: 19:44 kdr 08/09 19:30 Order name: IV Saline Lock; Complete Time: 19:49 kdr 08/09 19:30 Order name: Labs collected and sent; Complete Time: 19:49 kdr 08/09 19:30 Order name: O2 Per Protocol; Complete Time: 19:49 kdr 08/09 19:30 Order name: O2 Sat Monitoring; Complete Time: 19:49 kdr Administered Medications: 08/09 19:56 Drug: Xopenex (levalbuterol) (3) 1.25 mg Route: Inhalation; jb4 21:00 Drug: NS 0.9% 500 ml Route: IV; Rate: bolus; Site: right forearm; bb 22:00 Follow up: IV Status: Completed infusion; IV Intake: 450ml bb Disposition Summary: 08/09/22 22:06 Hospitalization Ordered Hospitalization Status: Observation kdr Provider: Bandar Rod kdr Location: Telemetry/MedSurg (observation) kdr Condition: Fair kdr Problem: new kdr Symptoms: have improved kdr Bed/Room Type: Standard kdr Room Assignment: 205(08/09/22 23:18) kdr Diagnosis - Shortness of breath kdr - Weakness kdr - Diarrhea, unspecified kdr - Dehydration kdr Forms: - Medication Reconciliation Form kdr - SBAR form kdr Signatures: Dispatcher [employer] EDMS Roc Frye MD MD kdr Yessy Maxwell RN RN Win Ramey RN RN Belle Alberts PA-C PA-C sb4 Corrections: (The following items were deleted from the chart) 23:18 22:06 kdr kdr
[2022-08-09 22:46] LABS: SARS-CoV-2 Antigen Rapid Res Negative (Negative)
--- NOTE | 2022-08-09 23:37 | P.HP ---
Certification for Inpatient Patient admitted to: Inpatient With expected LOS: >2 Midnights Patient will require the following post-hospital care: None Practitioner: I am a practitioner with admitting privileges, knowledge of patient current condition, hospital course, and medical plan of care. Services: Services provided to patient in accordance with Admission requirements found in Title 42 Section 412.3 of the Code of Federal Regulations Patient History Date of Service: 08/10/22 Reason for admission: Multifocal Pneumonia History of Present Illness: Patient is a 71-year-old female past medical history of COPD, hypertension, stage IV lung cancer with mets to the liver on chemotherapy (last session 1 month ago) who presented to the emergency department with complaints of shortness of breath and hypoxia. She typically requires 2-2.5 L O2 NC and saturates in the low 90s but she was noted to be saturating 80%. Her labs are significant for WBC 13.6, Hemoglobin 10.8, BUN 26, BNP 2500. ABG with a PCO2 of 45, PO2 63. Chest CT showed advanced chronic lung changes and concerns for underlying multifocal pneumonia. She does still smoke daily and has DNR in place. Patient is admitted for further management. Allergies diphenhydramine [From Benadryl] Adverse Reaction (Mild, Verified 08/10/22 01:43) other Home medications list reviewed: Yes Home Medications: Cetirizine HCl [Zyrtec] 5 mg PO DAILY PRN 11/07/15 Levothyroxine Sodium [Unithroid] 50 mcg PO DAILY 11/07/15 lisinopriL [Prinivil] 5 mg PO DAILY 11/07/15 - Past Medical/Surgical History Diabetic: No -: COPD -: Stage 4 Lung Cancer on chemotherapy -: Liver Cancer -: Hypercholesterolemia -: Depression/anxiety -: Total Abdominal Hysterectomy Psychosocial/ Personal History: Patient lives at [facility]. - Family History Family History: Reviewed- Non-Contributory - Social History Smoking Status: Current every day smoker Alcohol use: No CD- Drugs: Yes Caffeine use: Yes Place of Residence: [place] Review of Systems General: Weakness Respiratory: Cough, Shortness of Breath Gastrointestinal: Diarrhea Physical Examination - Vital Signs Temperature: 98.4 F Blood Pressure: 135/62 Pulse: 104 Respirations: 20 Pulse Ox (%): 91 (4.5L NC) - Physical Exam General: Alert, In no apparent distress HEENT: Atraumatic, PERRLA, EOMI, Sclerae nonicteric Neck: Supple, 2+ carotid pulse no bruit, No LAD, Without JVD or thyroid abnormality Respiratory: Crackles/rales Cardiovascular: Regular rate/rhythm, Normal S1 S2 Gastrointestinal: Normal bowel sounds, No tenderness Musculoskeletal: No tenderness Integumentary: No rashes Neurological: Normal speech, Sensation intact, Normal affect - Studies Laboratory Data (last 24 hrs) 08/09/22 19:45: WBC 13.60 H, Hgb 10.8 L, Hct 32.4 L, Plt Count 271 08/09/22 19:45: Sodium 139, Potassium 3.6, BUN 26 H, Creatinine 0.75, Glucose 129 H Assessment and Plan - Problems (Diagnosis) (1) Multifocal pneumonia Current Visit: Yes Status: Acute (2) Sepsis Current Visit: Yes Status: Acute Qualifiers: Sepsis type: sepsis due to unspecified organism Sepsis acute organ dysfunction status: without acute organ dysfunction Qualified Code(s): A41.9 - Sepsis, unspecified organism (3) COPD (chronic obstructive pulmonary disease) Current Visit: Yes Status: Chronic Qualifiers: COPD type: emphysema Emphysema type: unspecified Qualified Code(s): J43.9 - Emphysema, unspecified (4) Hypertension Current Visit: Yes Status: Chronic Qualifiers: Hypertension type: primary hypertension Qualified Code(s): I10 - Essential (primary) hypertension (5) Hypothyroidism Current Visit: Yes Status: Chronic Qualifiers: Hypothyroidism type: unspecified Qualified Code(s): E03.9 - Hypothyroidism, unspecified (6) Liver cancer Current Visit: Yes Status: Chronic Qualifiers: Liver malignancy type: unspecified liver malignancy Qualified Code(s): C22.9 - Malignant neoplasm of liver, not specified as primary or secondary (7) Lung cancer Current Visit: Yes Status: Chronic Qualifiers: Laterality: unspecified laterality Lung location: overlapping sites Qualified Code(s): C34.80 - Malignant neoplasm of overlapping sites of unspecified bronchus and lung (8) Anemia Current Visit: Yes Status: Chronic Qualifiers: Anemia type: other cause Other causes of anemia: chronic disease, other Qualified Code(s): D63.8 - Anemia in other chronic diseases classified elsewhere - Plan Patient is admitted for further management of multifocal pneumonia superimposed on COPD and stage IV lung cancer. Sepsis protocol was not initiated in the ED because no source was identified, however source was found later on CT. Blood cultures obtained. Lactate and Pro-Abraham pending. Zosyn ordered. Supportive measures with breathing treatments, antitussives, pain medications, supplemental O2. Currently requiring more O2 than usual. Titrate and wean as tolerated. Patient continues to smoke daily. Cessation advised. Pulmonology consult. Monitor and replete electrolytes per protocol. Reconcile continue home medications Lovenox for VTE prophylaxis. DNR. Discharge Plan: Long Term Plan to discharge in: Greater than 2 days - Advance Directives Does patient have a Living Will: No Does patient have a Durable POA for Healthcare: Yes - Code Status/Comfort Care Code Status Assessed: Yes Code Status: Do Not Attempt Resuscitat Physician Review: Patient Assessed, Agree with Above Assessment and Plan Critical Care: No Time Spent Managing Pts Care (In Minutes): 50
[2022-08-10] MEDS ORDERED: ONDANSETRON 4 MG/2 ML VIAL IV PRN (00:39)
[2022-08-10] MEDS ORDERED: ACETAMINOPHEN 500 MG TAB PO PRN (00:39)
[2022-08-10] MEDS ORDERED: PIPER TAZO 3.375 GM in NA CHLORIDE 0.9% 100 ML IV ONE (01:00)
[2022-08-10] MEDS ORDERED: MORPHINE 4 MG/ML SYR IV PRN (01:02)
[2022-08-10] MEDS: NA CHLORIDE 0.9% 1,000 ML IV SCH ×2 (03:04→13:59)
[2022-08-10 04:20] LABS: Absolute Lymphocytes (CBC) 0.2 K/uL (0.7-4.9); Hematocrit 32.1 % (36.0-45.0); Lymphocytes % 2.3 % (15.3-44.8); MCV 94.1 fL (80-100); MPV 6.4 fL (7.6-11.3); RBC Red Blood Cell Count 3.41 M/uL (3.86-4.86)
[2022-08-10 04:31] LABS: Magnesium 1.9 mg/dL (1.6-2.4); Phosphorus 3.2 mg/dL (2.5-4.9); Potassium 3.3 mmol/L (3.5-5.1)
[2022-08-10] MEDS: KCL 20 MEQ/100 mL IVPB 20 MEQ/100 ML BAG IV SCH ×2 (08:40→14:56)
[2022-08-10] MEDS: MIDODRINE HCL 5 MG TABLET PO SCH (09:00)
[2022-08-10] MEDS: LEVOTHYROXINE SOD 0.125 MG TAB PO SCH (09:00)
[2022-08-10] MEDS ORDERED: PIPER TAZO 3.375 GM in NA CHLORIDE 0.9% 100 ML IV SCH (09:00)
[2022-08-10] MEDS: SERTRALINE HCL 100 MG TAB PO SCH ×2 (09:00→12:57)
[2022-08-10] MEDS: ALBUTEROL 2.5 MG/3 ML NEB SOL NEB PRN ×2 (10:10→16:16)
[2022-08-10] MEDS: IPRATROPIUM BROM 0.5MG/2.5ML NEB PRN ×2 (10:10→16:16)
--- NOTE | 2022-08-10 11:10 | P.CNS ---
Date of Consult: 08/10/22 Reason for Consult: COPD history of lung cancer Chief Complaint: Multifocal Pneumonia History of Present Illness: Kidney 71 years of age with stage IV lung cancer COPD hypertension and mets to the liver apparently she has been receiving some chemotherapy once a month history of chronic diarrhea to the emergency room feeling weak having diarrhea she has had diarrhea on and off since chemotherapy there is takes Trelegy for her COPD has oxygen at home Up with pulmonology in [place] [facility] in [place] Allergies diphenhydramine [From Benadryl] Adverse Reaction (Mild, Verified 08/10/22 01:43) other Home Medications: Cetirizine HCl [Zyrtec] 5 mg PO DAILY PRN 11/07/15 Levothyroxine Sodium [Unithroid] 125 mcg PO DAILY 11/07/15 Acetaminophen [Tylenol Arthritis] 650 mg PO BID PRN 08/10/22 Albuterol Sulfate [Albuterol Sulfate 0.083% Neb Soln] 1 aero NEB PRN PRN 08/10/22 Donepezil HCl 10 mg PO BID 08/10/22 Fluticasone/Umeclidin/Vilanter [Trelegy Ellipta 100-62.5-25] 100 aero NEB Q24H 08/10/22 Furosemide 20 mg PO Q24H 08/10/22 Liothyronine Sodium [Cytomel] 5 mcg PO 08/10/22 Midodrine HCl 5 mg PO DAILY 08/10/22 Roflumilast [Daliresp] 500 mcg PO DAILY 08/10/22 Rosuvastatin Calcium 5 mg PO DAILY 08/10/22 Sertraline [Zoloft] 100 mg PO DAILY 08/10/22 Trazodone [Desyrel] 50 mg PO DAILY 08/10/22 - Past Medical/Surgical History Diabetic: No -: COPD -: Stage 4 Lung Cancer on chemotherapy -: Liver Cancer -: Hypercholesterolemia -: Depression/anxiety -: dementia -: Total Abdominal Hysterectomy Psychosocial/ Personal History: Patient lives at [facility]. - Social History Smoking Status: Current every day smoker Alcohol use: No CD- Drugs: Yes Caffeine use: Yes Place of Residence: [facility] Review of Systems General: Weakness Respiratory: Shortness of Breath Gastrointestinal: As per HPI Physical Examination Temp Pulse Resp BP Pulse Ox 99.1 F 97 H 18 134/59 L 92 08/10/22 07:59 08/10/22 07:59 08/10/22 07:59 08/10/22 07:59 08/10/22 07:59 General: Alert, Oriented x3 Respiratory: Clear to auscultation bilaterally, Diminished Cardiovascular: No edema, Regular rate/rhythm, Normal S1 S2 Gastrointestinal: Normal bowel sounds, Soft and benign Laboratory Data (last 24 hrs) 08/09/22 19:45: WBC 13.60 H, Hgb 10.8 L, Hct 32.4 L, Plt Count 271 08/09/22 19:45: Sodium 139, Potassium 3.6, BUN 26 H, Creatinine 0.75, Glucose 129 H - Problems (1) COPD exacerbation Current Visit: Yes Status: Acute Plan: Patient is 71 years of age with a history of presumably severe COPD based on his chest CT appearance is history of lung cancer she does have some residual disease in her lungs metastatic to the liver she is on monthly chemotherapy followed up by [place] [facility] 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 levofloxacin p.o. prednisone probably an exacerbation of her COPD is chronic diarrhea from presumed chemotherapy although it could be a side effect of the Daliresp vies patient to hold the Daliresp for at least a week to see if her symptoms improve a TAVR is remained fairly stable blood gases showed mild hypoxemia with borderline no evidence of pulmonary embolism on CT angiogram
[2022-08-10] MEDS ORDERED: HOME MED 1 EA UNK (Fluticasone/Umeclidin/Vilanter [Trelegy Ellipta 100-62.5-25] Blst.W.Dev IH SCH (11:15)
[2022-08-10] MEDS ORDERED: CETIRIZINE HCL 5 MG TABLET PO PRN (11:20)
[2022-08-10] MEDS: FLUCONAZOLE 200mg IVPB 200 MG/100 ML BAG IV SCH (12:00)
--- NOTE | 2022-08-10 12:05 | P.PN ---
Subjective Date of Service: 08/10/22 Chief Complaint: Multifocal Pneumonia Patient is currently maintained on 4 L oxygen by nasal cannula. She reports recent difficulty swallowing solids and thin liquids. Daughter also reports history of oral thrush and patient still has thrush despite completing 1 month of an antifungal. Physical Examination - Vital Signs Temperature: 99.1 F Blood Pressure: 134/59 Pulse: 97 Respirations: 18 Pulse Ox (%): 92 - Studies Laboratory Data (last 24 hrs) 08/09/22 19:45: WBC 13.60 H, Hgb 10.8 L, Hct 32.4 L, Plt Count 271 08/09/22 19:45: Sodium 139, Potassium 3.6, BUN 26 H, Creatinine 0.75, Glucose 129 H Assessment And Plan - Current Problems (Diagnosis) (1) COPD exacerbation Current Visit: Yes Status: Acute (2) Multifocal pneumonia Current Visit: Yes Status: Acute (3) Lung cancer Current Visit: Yes Status: Chronic Qualifiers: Laterality: unspecified laterality Lung location: overlapping sites Qualified Code(s): C34.80 - Malignant neoplasm of overlapping sites of unspecified bronchus and lung (4) Liver cancer Current Visit: Yes Status: Chronic Qualifiers: Liver malignancy type: unspecified liver malignancy Qualified Code(s): C22.9 - Malignant neoplasm of liver, not specified as primary or secondary (5) Sepsis Current Visit: Yes Status: Acute Qualifiers: Sepsis type: sepsis due to unspecified organism Sepsis acute organ dysfunction status: without acute organ dysfunction Qualified Code(s): A41.9 - Sepsis, unspecified organism - Plan Physical Exam General: Alert, In no apparent distress HEENT: Oxygen by nasal cannula. Neck: Supple, 2+ carotid pulse no bruit, No LAD, Without JVD or thyroid abnormality Respiratory: Crackles/rales bilateral, diminished breath sounds. Cardiovascular: Regular rate/rhythm, Normal S1 S2 Gastrointestinal: Normal bowel sounds, No tenderness Musculoskeletal: No tenderness Integumentary: No rashes Neurological: Normal speech, Sensation intact, Normal affect Plan: Pulmonary input appreciated. Possible aspiration pneumonia Continue antibiotics-Levaquin and Zosyn. Follow cultures. Chest physiotherapy. Titrate oxygen Start IV Diflucan for oral candidiasis Oral and esophageal candidiasis likely contributing to dysphagia Speech therapy consulted. Patient states she has been tolerating soft diet. A trial of soft diet. Continue IV fluid.
[2022-08-10] MEDS: predniSONE 20 MG TAB PO SCH ×2 (12:57→20:20)
[2022-08-10] MEDS: DONEPEZIL HCL 5 MG TAB PO SCH (20:20)
[2022-08-10] MEDS: TRAZODONE 50 MG TABLET PO SCH (20:20)
--- NOTE | 2022-08-10 22:59 | RAD REPORT ---
EXAM DESCRIPTION: CT - Chest For Pe Angio - 08/10/2022 6:02 am CLINICAL HISTORY: The patient is 71 years old and is Female; shortness of breath TECHNIQUE: Axial computed tomographic angiography images of the chest with intravenous contrast. T his CT exam was performed using one or more of the following dose reduction techniques: automated e xposure control, adjustment of the mA and/or kV according to patient size, and/or use of iterative re construction technique. MIP reconstructed images were created and reviewed. Oblique reformatted images were created and reviewed. DLP: 274 mGy*cm COMPARISON: Chest radiograph of the same day. FINDINGS: PULMONARY ARTERIES: Unremarkable. No pulmonary embolism. AORTA: No acute findings. No thoracic aortic aneurysm. LUNGS: Advanced chronic lung changes with hyperinflation and emphysema. Scattered groundglass opac ities in the right mid and lower lung zones. Consolidation in the left lower lobe. Bibasilar scarring . Hyperinflation. Left upper lung nodule measuring 1 cm. PLEURAL SPACE: Small right pleural effusion. No pneumothorax. HEART: Unremarkable. No cardiomegaly. No significant pericardial effusion. No evidence of RV dysfunction. MEDIASTINUM: Mediastinal and bihilar lymphadenopathy. Circumferential wall thickening of the esophageal wall. BONES/JOINTS: Advanced multilevel degenerative changes of the visualized spine. Diffuse osteopenia . No acute fracture. No dislocation. SOFT TISSUES: Unremarkable. LYMPH NODES: Unremarkable. No enlarged lymph nodes. IMPRESSION: 1. No pulmonary embolism. 2. Advanced chronic lung changes and concerns for underlying multifocal pneumonia. 3. Left upper lung nodule measuring 1 cm. Consider a non-contrast Chest CT at 3 months, a PET/CT, o r tissue sampling. These guidelines do not apply to immunocompromised patients and patients with cancer. Follow up in pa tients with significant comorbidities as clinically warranted. For lung cancer screening, adhere to L feliciano-RADS guidelines. Reference: Radiology. 2017; 284(1):228-43. 4. Small right pleural effusion. 5. Mediastinal and bihilar lymphadenopathy. 6. Circumferential wall thickening of the esophageal wall. Electronically signed by: Alex Louis DO 08/10/2022 12:45 AM [employer] ASSIST[employer] Due to temporary technical issues with the PACS/Fluency reporting system, reports are being signed by the in house radiologists without review as a courtesy to insure prompt reporting. The interpreting radiologist is fully responsible for the content of the report.
[2022-08-11] MEDS: IPRATROPIUM BROM 0.5MG/2.5ML NEB PRN ×4 (02:55→19:25)
[2022-08-11] MEDS: ALBUTEROL 2.5 MG/3 ML NEB SOL NEB PRN ×4 (02:55→19:25)
[2022-08-11 03:11] LABS: Absolute Lymphocytes (CBC) 0.3 K/uL (0.7-4.9); Lymphocytes % 3.3 % (15.3-44.8); MCV 94.7 fL (80-100); MPV 6.8 fL (7.6-11.3); RBC Red Blood Cell Count 3.38 M/uL (3.86-4.86)
[2022-08-11 03:30] LABS: Potassium 4.4 mmol/L (3.5-5.1)
[2022-08-11] MEDS: NA CHLORIDE 0.9% 1,000 ML IV SCH ×2 (04:18→16:53)
[2022-08-11] MEDS: HOME MED 1 EA UNK (Fluticasone/Umeclidin/Vilanter [Trelegy Ellipta 100-62.5-25] Blst.W.Dev IH SCH (09:00)
[2022-08-11] MEDS ORDERED: levoFLOXacin 250 MG TAB PO SCH (09:00)
[2022-08-11] MEDS: predniSONE 20 MG TAB PO SCH ×2 (09:22→20:14)
[2022-08-11] MEDS: levoFLOXacin 750 MG TAB PO SCH (09:22)
[2022-08-11] MEDS: SERTRALINE HCL 100 MG TAB PO SCH (09:22)
[2022-08-11] MEDS: MIDODRINE HCL 5 MG TABLET PO SCH (09:22)
[2022-08-11] MEDS: DONEPEZIL HCL 5 MG TAB PO SCH ×2 (09:23→20:14)
[2022-08-11] MEDS: ROSUVASTATIN 10 MG TAB PO SCH (09:23)
[2022-08-11] MEDS: LIOTHYRONINE SOD 5 MCG TAB PO SCH (09:23)
[2022-08-11] MEDS: ROFLUMILAST 500 MCG TABLET PO SCH (09:23)
[2022-08-11] MEDS: LEVOTHYROXINE SOD 0.125 MG TAB PO SCH (09:23)
--- NOTE | 2022-08-11 12:13 | P.PN ---
Subjective Date of Service: 08/11/22 Chief Complaint: Multifocal Pneumonia Patient states she feels about the same and no changes from yesterday. She had an episode of shortness of breath last night and desaturated. Oxygen was increased to high flow oxygen. She stated she tolerated solid diet but could not hold it in applesauce. She was seen taking her medications with water with no issues. She reported diarrhea last night. Physical Examination - Vital Signs Temperature: 97.9 F Blood Pressure: 125/54 Pulse: 89 Respirations: 16 Pulse Ox (%): 96 Assessment And Plan - Current Problems (Diagnosis) (1) COPD exacerbation Current Visit: Yes Status: Acute (2) Multifocal pneumonia Current Visit: Yes Status: Acute (3) Lung cancer Current Visit: Yes Status: Chronic Qualifiers: Laterality: unspecified laterality Lung location: overlapping sites Qualified Code(s): C34.80 - Malignant neoplasm of overlapping sites of unspecified bronchus and lung (4) Liver cancer Current Visit: Yes Status: Chronic Qualifiers: Liver malignancy type: unspecified liver malignancy Qualified Code(s): C22.9 - Malignant neoplasm of liver, not specified as primary or secondary (5) Sepsis Current Visit: Yes Status: Acute Qualifiers: Sepsis type: sepsis due to unspecified organism Sepsis acute organ dysfunction status: without acute organ dysfunction Qualified Code(s): A41.9 - Sepsis, unspecified organism - Plan Physical Exam General: Alert, In no apparent distress HEENT: Oxygen by nasal cannula. Neck: Supple, 2+ carotid pulse no bruit, No LAD, Without JVD or thyroid abnormality Respiratory: Crackles/rales bilateral, diminished breath sounds. Cardiovascular: Regular rate/rhythm, Normal S1 S2 Gastrointestinal: Normal bowel sounds, No tenderness Musculoskeletal: No tenderness Integumentary: No rashes Neurological: Normal speech, Sensation intact, Normal affect Plan: Seen by pulmonary. Possible aspiration pneumonia Continue Levaquin. Zosyn discontinued by pulmonary. Blood cultures: No growth to date. Chest physiotherapy. Titrate oxygen Continue IV Diflucan for oral candidiasis Oral and esophageal candidiasis likely contributing to dysphagia Speech therapy consulted. Patient states she has been tolerating solid diet. Continue IV fluid.
[2022-08-11] MEDS: FLUCONAZOLE 200mg IVPB 200 MG/100 ML BAG IV SCH (13:13)
--- NOTE | 2022-08-11 14:23 | EKG ---
Test Date: 2022-08-09 Test Time: 19:40:22 [place] Operator: NATTY MEASUREMENT RESULTS: Intervals: Rate: 107 NC: 180 QRSD: 86 QT: 330 QTc: 440 [place]: P: 85 NC: 180 QRS: 72 T: 97 INTERPRETIVE STATEMENTS: Sinus tachycardia Possible Left atrial enlargement ST & T wave abnormality, consider anterolateral ischemia Abnormal ECG Compared to ECG 03/06/2022 18:49:09 ST (T wave) deviation now present Possible ischemia now present Sinus rhythm no longer present Electronically Signed On 08-11-22 14:23:07 [place] [place] by Abdirahman Guerra
[2022-08-11] MEDS ORDERED: VANCOMYCIN 1.25 GM in NA CHLORIDE 0.9% 250 ML IVPB ONE (15:00)
[2022-08-11] MEDS: VANCOMYCIN 1 GM in NA CHLORIDE 0.9% 250 ML IVPB SCH (15:00)
[2022-08-11] MEDS: TRAZODONE 50 MG TABLET PO SCH (20:14)
[2022-08-12] MEDS: BENZONATATE 100 MG CAP PO PRN ×2 (01:16→20:04)
[2022-08-12] MEDS: ALBUTEROL 2.5 MG/3 ML NEB SOL NEB PRN ×4 (02:10→22:30)
[2022-08-12] MEDS: IPRATROPIUM BROM 0.5MG/2.5ML NEB PRN ×4 (02:10→22:30)
[2022-08-12 03:43] LABS: Absolute Lymphocytes (CBC) 0.3 K/uL (0.7-4.9); Hematocrit 29.5 % (36.0-45.0); Lymphocytes % 4.6 % (15.3-44.8); MCV 95.6 fL (80-100); MPV 6.8 fL (7.6-11.3); RBC Red Blood Cell Count 3.09 M/uL (3.86-4.86)
[2022-08-12 04:10] LABS: Potassium 4.1 mmol/L (3.5-5.1)
[2022-08-12] MEDS ORDERED: HYDROCODONE/CHLORPHEN 5 ML/OSYR PO ONE (05:13)
[2022-08-12 07:11] VITALS: BMI 19.9
[2022-08-12] MEDS: NA CHLORIDE 0.9% 1,000 ML IV SCH ×2 (07:27→23:50)
[2022-08-12] MEDS: ROFLUMILAST 500 MCG TABLET PO SCH (08:52)
[2022-08-12] MEDS: ROSUVASTATIN 10 MG TAB PO SCH (08:52)
[2022-08-12] MEDS: LEVOTHYROXINE SOD 0.125 MG TAB PO SCH (08:54)
[2022-08-12] MEDS: SERTRALINE HCL 100 MG TAB PO SCH (08:54)
[2022-08-12] MEDS: DONEPEZIL HCL 5 MG TAB PO SCH ×2 (08:54→20:04)
[2022-08-12] MEDS: predniSONE 20 MG TAB PO SCH ×2 (08:54→20:03)
[2022-08-12] MEDS: LIOTHYRONINE SOD 5 MCG TAB PO SCH (08:54)
[2022-08-12] MEDS: HOME MED 1 EA UNK (Fluticasone/Umeclidin/Vilanter [Trelegy Ellipta 100-62.5-25] Blst.W.Dev IH SCH (08:55)
[2022-08-12] MEDS: MIDODRINE HCL 5 MG TABLET PO SCH (09:04)
[2022-08-12] MEDS: levoFLOXacin 750 MG TAB PO SCH (09:04)
--- NOTE | 2022-08-12 09:12 | P.CNS ---
Chief Complaint: Multifocal Pneumonia History of Present Illness: Patient is a 71-year-old female past medical history of COPD, hypertension, stage IV lung cancer with mets to the liver on chemotherapy (last session 1 month ago) who presented to the emergency department with complaints of shortness of breath and hypoxia. She typically requires 2-2.5 L O2 NC and saturates in the low 90s but she was noted to be saturating 80%. Her labs are significant for WBC 13.6, Hemoglobin 10.8, BUN 26, BNP 2500. ABG with a PCO2 of 45, PO2 63. Chest CT showed advanced chronic lung changes and concerns for underlying multifocal pneumonia. She does still smoke daily and has DNR in place. Patient is admitted for further management. Given of CT result of multifocal pneumonia, ID has been consulted for IV antibiotics recommendation and management. Allergies diphenhydramine [From Benadryl] Adverse Reaction (Mild, Verified 08/10/22 01:43) other Home Medications: Cetirizine HCl [Zyrtec] 5 mg PO DAILY PRN 11/07/15 Levothyroxine Sodium [Unithroid] 125 mcg PO DAILY 11/07/15 Acetaminophen [Tylenol Arthritis] 650 mg PO BID PRN 08/10/22 Albuterol Sulfate [Albuterol Sulfate 0.083% Neb Soln] 1 aero NEB PRN PRN 08/10/22 Cannabis 0.5 ml SL DAILY 08/10/22 Donepezil HCl 10 mg PO BID 08/10/22 Fluticasone/Umeclidin/Vilanter [Trelegy Ellipta 100-62.5-25] 100 aero NEB Q24H 08/10/22 Furosemide 20 mg PO Q24H 08/10/22 Liothyronine Sodium [Cytomel] 5 mcg PO 08/10/22 Midodrine HCl 5 mg PO DAILY 08/10/22 Roflumilast [Daliresp] 500 mcg PO DAILY 08/10/22 Rosuvastatin Calcium 5 mg PO DAILY 08/10/22 Sertraline [Zoloft] 100 mg PO DAILY 08/10/22 Trazodone [Desyrel] 50 mg PO DAILY 08/10/22 - Past Medical/Surgical History Diabetic: No -: COPD -: Stage 4 Lung Cancer on chemotherapy -: Liver Cancer -: Hypercholesterolemia -: Depression/anxiety -: dementia -: Total Abdominal Hysterectomy Psychosocial/ Personal History: Patient lives at [facility]. - Social History Smoking Status: Current every day smoker Alcohol use: No CD- Drugs: Yes Caffeine use: Yes Place of Residence: [place]term Review of Systems Respiratory: Cough, Shortness of Breath, SOB with Excertion Gastrointestinal: Diarrhea (Patient also on chemotherapy) Physical Examination Temp Pulse Resp BP Pulse Ox 97.8 F 80 18 144/72 H 94 08/12/22 07:52 08/12/22 07:52 08/12/22 07:52 08/12/22 07:52 08/12/22 07:52 General: Alert, In no apparent distress, Oriented x3 Respiratory: Diminished (Bilateral basal), Other (Frequent coughing) Cardiovascular: Normal pulses, Normal S1 S2 Gastrointestinal: Normal bowel sounds Musculoskeletal: No swelling, No tenderness Integumentary: No rashes, No breakdown Neurological: Normal speech, Normal tone Current Medications: Acetaminophen (Acetaminophen 500 Mg Tab) 500 mg PO Q4HP PRN PRN Reason: Pain scale 2-4 (Mild) Last Admin: 08/10/22 03:02 Dose: 500 mg Albuterol Sulfate (Albuterol 2.5 Mg/3 Ml Neb Bindu) 2.5 mg NEB Q6HP PRN PRN Reason: SHORTNESS OF BREATH Last Admin: 08/12/22 02:10 Dose: 2.5 mg Benzonatate (Benzonatate 100 Mg Cap) 100 mg PO TID PRN PRN Reason: COUGH Last Admin: 08/12/22 01:16 Dose: 100 mg Cetirizine HCl (Cetirizine Hcl 5 Mg Tablet) 5 mg PO DAILY PRN PRN Reason: ALLERGIES Donepezil HCl (Donepezil Hcl 5 Mg Tab) 10 mg PO BID [facility] Last Admin: 08/12/22 08:54 Dose: 10 mg Home Med (Fluticasone/Umeclidin/Vilanter [Trelegy Ellipta 100-62.5-25]) 0 aero IH Q24H [facility] Last Admin: 08/12/22 08:55 Dose: Not Given Sodium Chloride (Ns 1000 Ml Ivbag) 1,000 mls @ 75 mls/hr IV .[id number] [facility] Last Admin: 08/12/22 07:27 Dose: 1,000 mls Fluconazole (Diflucan 200 Mg/100 Ml Ivpb (Premix)) 200 mg in 100 mls @ 100 mls/hr IV Q24H [facility]; Protocol Last Admin: 08/11/22 13:13 Dose: 100 mls Vancomycin HCl 1 gm/ Sodium (Chloride) 250 mls @ 250 mls/hr IVPB Q12H [facility]; Protocol Last Admin: 08/11/22 15:00 Dose: 250 mls Ipratropium [place] (Ipratropium Brom 0.5mg/2.5ml) 0.5 mg NEB [id number] PRN PRN Reason: SHORTNESS OF BREATH Last Admin: 08/12/22 02:10 Dose: 0.5 mg Levofloxacin (Levofloxacin 750 Mg Tab) 750 mg PO DAILY [facility]; Protocol Last Admin: 08/12/22 09:04 Dose: 750 mg Levothyroxine Sodium (Levothyroxine Sod 0.125 Mg Tab) 0.125 mg PO DAILY [facility] Last Admin: 08/12/22 08:54 Dose: 0.125 mg Liothyronine Sodium (Liothyronine Sod 5 Mcg Tab) 5 mcg PO DAILY [facility] Last Admin: 08/12/22 08:54 Dose: 5 mcg Midodrine (Midodrine Hcl 5 Mg Tablet) 5 mg PO DAILY [facility] Last Admin: 08/12/22 09:04 Dose: 5 mg Morphine Sulfate (Morphine 4 Mg/Ml Syr) 4 mg IV Q4H PRN PRN Reason: Pain scale 5-7 (Moderate) Ondansetron HCl (Ondansetron 4 Mg/2 Ml Vial) 4 mg IV Q6HP PRN PRN Reason: NAUSEA / VOMITING Prednisone (Prednisone 20 Mg Tab) 20 mg PO BID [facility] Last Admin: 08/12/22 08:54 Dose: 20 mg Roflumilast (Roflumilast 500 Mcg Tablet) 500 mcg PO DAILY [facility] Last Admin: 08/12/22 08:52 Dose: 500 mcg Rosuvastatin Calcium (Rosuvastatin 10 Mg Tab) 5 mg PO DAILY [facility] Last Admin: 08/12/22 08:52 Dose: 5 mg Sertraline HCl (Sertraline Hcl 100 Mg Tab) 100 mg PO DAILY [facility] Last Admin: 08/12/22 08:54 Dose: 100 mg Sodium Chloride (Flush Normal Saline 10 Ml) 10 ml IV BID [facility] Last Admin: 08/12/22 08:56 Dose: Not Given Trazodone HCl (Trazodone 50 Mg Tablet) 50 mg PO BEDTIME [facility] Last Admin: 08/11/22 20:14 Dose: 50 mg Imagings Data: 08/09 Chest Xray: FINDINGS: Lungs are markedly hyperaerated. Patient's known small right lung lesion not clearly visualized on this exam. Mild chronic opacities medial right lung. The lungs appear clear of acute infiltrate. The heart is normal size Central venous catheter in place IMPRESSION: COPD without visualization of an acute abnormality 08/09 CT Chest: IMPRESSION: 1. No pulmonary embolism. 2. Advanced chronic lung changes and concerns for underlying multifocal pneumonia. 3. Left upper lung nodule measuring 1 cm. Consider a non-contrast Chest CT at 3 months, a PET/CT, or tissue sampling. These guidelines do not apply to immunocompromised patients and patients with cancer. Follow up in patients with significant comorbidities as clinically warranted. For lung cancer screening, adhere to LungRADS guidelines. Reference: Radiology. 2017; 284(1):228-43. 4. Small right pleural effusion. RADIOLOGY SERVICES REPORT (Continued) Name: NORBERTO DUVALL CC: Bandar Rod MD; Roc Frye MD, SANDRA LAPLANT / Report: [id number] Radiology Services Report Page 2 of 2 5. Mediastinal and bihilar lymphadenopathy. 6. Circumferential wall thickening of the esophageal wall. - Problems (1) Pneumonia Current Visit: Yes Status: Acute Plan: Currently patient is on Vapotherm oxygen support with 12L, 50% FiO2 and O2 Sat is 96% with no signs of in pulmonary distress Cultures: 08/10 BC: Staph-Coagulase Positive; Gram Positive Cocci in clusters. Likely due to contamination. Culture pending 08/11 BC: Pending Antibiotics: - Recommendation: 1. Continue IV Levofloxacin and Vancomycin (both 08/11 to present) 2. Add probiotics twice daily Conclusions/Impression: - Pneumonia: Continue current IV antibiotics and would adjust the choice of antibiotics when culture is available; Currently patient is on Vapotherm oxygen support with 12L, 50% FiO2 and O2 Sat is 96% with no signs of having cardiopulmonary distress - Anemia of chronic disease: Keep monitoring H&H - COPD - HTN - Lung cancer stage IV and mets to liver ID will monitoring the patient closely for signs of infection with fever and WBC trends. Case has been discussed with Murali Jimenez Thank you Dr. Rod for consult
[2022-08-12] MEDS: FLUCONAZOLE 200mg IVPB 200 MG/100 ML BAG IV SCH (11:32)
--- NOTE | 2022-08-12 12:48 | P.PN ---
Subjective Date of Service: 08/12/22 Chief Complaint: Multifocal Pneumonia Patient remains on high flow oxygen. No major changes from yesterday No recorded fever Physical Examination - Vital Signs Temperature: 98.1 F Blood Pressure: 138/66 Pulse: 88 Respirations: 18 Pulse Ox (%): 94 Assessment And Plan - Current Problems (Diagnosis) (1) COPD exacerbation Current Visit: Yes Status: Acute (2) Multifocal pneumonia Current Visit: Yes Status: Acute (3) Lung cancer Current Visit: Yes Status: Chronic Qualifiers: Laterality: unspecified laterality Lung location: overlapping sites Qualified Code(s): C34.80 - Malignant neoplasm of overlapping sites of unspecified bronchus and lung (4) Liver cancer Current Visit: Yes Status: Chronic Qualifiers: Liver malignancy type: unspecified liver malignancy Qualified Code(s): C22.9 - Malignant neoplasm of liver, not specified as primary or secondary (5) Sepsis Current Visit: Yes Status: Acute Qualifiers: Sepsis type: sepsis due to unspecified organism Sepsis acute organ dysfunction status: without acute organ dysfunction Qualified Code(s): A41.9 - Sepsis, unspecified organism - Plan Physical Exam General: Alert, In no apparent distress HEENT: Oxygen by nasal cannula. Neck: Supple, 2+ carotid pulse no bruit, No LAD, Without JVD or thyroid abnormality Respiratory: Crackles/rales bilateral, diminished breath sounds. Cardiovascular: Regular rate/rhythm, Normal S1 S2 Gastrointestinal: Normal bowel sounds, No tenderness Musculoskeletal: No tenderness Integumentary: No rashes Neurological: Normal speech, Sensation intact, Normal affect Plan: Sepsis resolved Seen by pulmonary. Possible aspiration pneumonia. 1 culture bottle grew coagulase positive staph Continue Levaquin and vancomycin. Infectious disease input appreciated. Chest physiotherapy. Titrate oxygen Continue IV Diflucan for oral candidiasis Oral and esophageal candidiasis likely contributing to dysphagia Speech therapy consulted. Diet as tolerated. .
--- NOTE | 2022-08-12 13:03 | P.PN ---
Subjective Date of Service: 08/12/22 Chief Complaint: COPD exacerbation Patient still continues to remain very congested short of breath significant nocturnal oxygen desaturation Physical Examination - Vital Signs Temperature: 98.1 F Blood Pressure: 138/66 Pulse: 88 Respirations: 18 Pulse Ox (%): 94 - Physical Exam General: Alert, Moderate distress Respiratory: Expiratory wheezes, Rhonchi/gurgles Cardiovascular: No edema, Regular rate/rhythm, Normal S1 S2 Assessment And Plan - Current Problems (Diagnosis) (1) COPD exacerbation Current Visit: Yes Status: Acute Plan: Patient is 71 years of age admitted with COPD exacerbation possible underlying pneumonia immunocompromise still continues to remain very congested but cultures most likely contaminant currently on vancomycin and chemistries reviewed white count normal I also ordered some sputum culture resume Daliresp chest CT scan shows significant fibrosis with emphysema prognosis remains poor likely she has end-stage COPD patient is currently on high flow oxygen according to the family member she experiences significant desaturation at night consider BiPAP Physician Review: Patient Assessed, Agree with Above Assessment and Plan
[2022-08-12] MEDS: VANCOMYCIN 1 GM in NA CHLORIDE 0.9% 250 ML IVPB SCH (14:48)
--- NOTE | 2022-08-12 18:37 | P.PN ---
Date of Service: 08/13/22 Subjective: difficulty swallowing no new/worsening signs/symptoms ROS: A complete review of systems was performed and is negative except as mentioned above Physical Exam: Gen: NAD, AOx3 HEENT: normal conjunctiva, sclera anicteric CV: regular rate & rhythm, no edema Pulm: non-labored respirations on 4L NC, crackles bilaterally Abd: soft, non-tender, non-distended Neuro: normal speech, normal affect, moves all extremities vitals reviewed Problem List acute on chronic hypoxemic respiratory failure secondary to acute on chronci COPD exacerbation and multifocal pneumonia acute on chronic COPD exacerbation (2-2.5L NC at home) sepsis secondaryt to multifocal pneumonia Stage IV Lung cancer (mets to liveR) on chemotherapy HTN Sepsis resolved possible aspiration pneumonia - vanc/levaquin 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
[2022-08-12] MEDS: TRAZODONE 50 MG TABLET PO SCH (20:04)
[2022-08-13 02:10] LABS: Absolute Lymphocytes (CBC) 0.2 K/uL (0.7-4.9); Hematocrit 30.8 % (36.0-45.0); Lymphocytes % 2.7 % (15.3-44.8); MCV 95.3 fL (80-100); MPV 6.4 fL (7.6-11.3); RBC Red Blood Cell Count 3.23 M/uL (3.86-4.86)
[2022-08-13 02:32] LABS: Potassium 3.9 mmol/L (3.5-5.1)
[2022-08-13] MEDS: VANCOMYCIN 1 GM in NA CHLORIDE 0.9% 250 ML IVPB SCH ×2 (03:22→16:31)
[2022-08-13 03:30] LABS: Blood Morphology Comment NOT SEEN (NOT SEEN); Platelet Estimate ADEQ
[2022-08-13] MEDS ORDERED: KCL 20 MEQ/100 mL IVPB 20 MEQ/100 ML BAG IV SCH (05:00)
[2022-08-13] MEDS: IPRATROPIUM BROM 0.5MG/2.5ML NEB PRN ×3 (07:40→19:55)
[2022-08-13] MEDS: ALBUTEROL 2.5 MG/3 ML NEB SOL NEB PRN ×3 (07:40→19:55)
[2022-08-13] MEDS: ENOXAPARIN 40 MG/0.4 ML SQ SCH (09:00)
[2022-08-13] MEDS: MIDODRINE HCL 5 MG TABLET PO SCH (09:00)
[2022-08-13] MEDS: ROFLUMILAST 500 MCG TABLET PO SCH (09:00)
[2022-08-13] MEDS: LEVOTHYROXINE SOD 0.125 MG TAB PO SCH (09:00)
[2022-08-13] MEDS: predniSONE 20 MG TAB PO SCH ×2 (09:00→21:38)
[2022-08-13] MEDS: HOME MED 1 EA UNK (Fluticasone/Umeclidin/Vilanter [Trelegy Ellipta 100-62.5-25] Blst.W.Dev IH SCH (09:00)
[2022-08-13] MEDS: SERTRALINE HCL 100 MG TAB PO SCH (09:00)
[2022-08-13] MEDS: DONEPEZIL HCL 5 MG TAB PO SCH ×2 (09:00→21:38)
[2022-08-13] MEDS: levoFLOXacin 750 MG TAB PO SCH (09:00)
[2022-08-13] MEDS: ROSUVASTATIN 10 MG TAB PO SCH (09:00)
[2022-08-13] MEDS: LIOTHYRONINE SOD 5 MCG TAB PO SCH (09:00)
--- NOTE | 2022-08-13 10:10 | P.PN ---
Subjective Date of Service: 08/13/22 Chief Complaint: Multifocal Pneumonia Patient was lying in bed with the daughter at the bedside. Weaned off Vapotherm and have 3.5 L of oxygen support without in distress. Patient reported feeling better. Physical Examination - Vital Signs Temperature: 97.4 F Blood Pressure: 155/79 Pulse: 86 Respirations: 16 Pulse Ox (%): 92 - Physical Exam General: Alert, In no apparent distress, Oriented x3 Respiratory: Diminished, Other (on 3.5 L of oxygen support) Cardiovascular: No edema, Normal pulses, Normal S1 S2 Gastrointestinal: Normal bowel sounds Musculoskeletal: No swelling, No tenderness Integumentary: No rashes, No breakdown Neurological: Normal speech, Normal tone - Studies Current medications: Acetaminophen (Acetaminophen 500 Mg Tab) 500 mg PO Q4HP PRN PRN Reason: Pain scale 2-4 (Mild) Last Admin: 08/10/22 03:02 Dose: 500 mg Albuterol Sulfate (Albuterol 2.5 Mg/3 Ml Neb Bindu) 2.5 mg NEB Q6HP PRN PRN Reason: SHORTNESS OF BREATH Last Admin: 08/13/22 07:40 Dose: 2.5 mg Benzonatate (Benzonatate 100 Mg Cap) 100 mg PO TID PRN PRN Reason: COUGH Last Admin: 08/12/22 20:04 Dose: 100 mg Cetirizine HCl (Cetirizine Hcl 5 Mg Tablet) 5 mg PO DAILY PRN PRN Reason: ALLERGIES Donepezil HCl (Donepezil Hcl 5 Mg Tab) 10 mg PO BID [facility] Last Admin: 08/12/22 20:04 Dose: 10 mg Enoxaparin Sodium (Enoxaparin 40 Mg/0.4 Ml) 40 mg SQ DAILY [facility] Home Med (Fluticasone/Umeclidin/Vilanter [Trelegy Ellipta 100-62.5-25]) 0 aero IH Q24H [facility] Last Admin: 08/12/22 08:55 Dose: Not Given Sodium Chloride (Ns 1000 Ml Ivbag) 1,000 mls @ 75 mls/hr IV .[id number] [facility] Last Admin: 08/12/22 23:50 Dose: 1,000 mls Fluconazole (Diflucan 200 Mg/100 Ml Ivpb (Premix)) 200 mg in 100 mls @ 100 mls/hr IV Q24H [facility]; Protocol Last Admin: 08/12/22 11:32 Dose: 100 mls Vancomycin HCl 1 gm/ Sodium (Chloride) 250 mls @ 250 mls/hr IVPB Q12H [facility]; Protocol Last Admin: 08/13/22 03:22 Dose: 250 mls Ipratropium [place] (Ipratropium Brom 0.5mg/2.5ml) 0.5 mg NEB [id number] PRN PRN Reason: SHORTNESS OF BREATH Last Admin: 08/13/22 07:40 Dose: 0.5 mg Levofloxacin (Levofloxacin 750 Mg Tab) 750 mg PO DAILY [facility]; Protocol Last Admin: 08/12/22 09:04 Dose: 750 mg Levothyroxine Sodium (Levothyroxine Sod 0.125 Mg Tab) 0.125 mg PO DAILY [facility] Last Admin: 08/12/22 08:54 Dose: 0.125 mg Liothyronine Sodium (Liothyronine Sod 5 Mcg Tab) 5 mcg PO DAILY [facility] Last Admin: 08/12/22 08:54 Dose: 5 mcg Midodrine (Midodrine Hcl 5 Mg Tablet) 5 mg PO DAILY [facility] Last Admin: 08/12/22 09:04 Dose: 5 mg Morphine Sulfate (Morphine 4 Mg/Ml Syr) 4 mg IV Q4H PRN PRN Reason: Pain scale 5-7 (Moderate) Ondansetron HCl (Ondansetron 4 Mg/2 Ml Vial) 4 mg IV Q6HP PRN PRN Reason: NAUSEA / VOMITING Prednisone (Prednisone 20 Mg Tab) 20 mg PO BID [facility] Last Admin: 08/12/22 20:03 Dose: 20 mg Roflumilast (Roflumilast 500 Mcg Tablet) 500 mcg PO DAILY [facility] Last Admin: 08/12/22 08:52 Dose: 500 mcg Rosuvastatin Calcium (Rosuvastatin 10 Mg Tab) 5 mg PO DAILY [facility] Last Admin: 08/12/22 08:52 Dose: 5 mg Sertraline HCl (Sertraline Hcl 100 Mg Tab) 100 mg PO DAILY [facility] Last Admin: 08/12/22 08:54 Dose: 100 mg Sodium Chloride (Flush Normal Saline 10 Ml) 10 ml IV BID [facility] Last Admin: 08/12/22 20:11 Dose: Not Given Trazodone HCl (Trazodone 50 Mg Tablet) 50 mg PO BEDTIME [facility] Last Admin: 08/12/22 20:04 Dose: 50 mg Assessment And Plan - Current Problems (Diagnosis) (1) Pneumonia Current Visit: Yes Status: Acute Plan: Currently patient is on 3.5 L of oxygen support with no signs of having cardiopulmonary distress Cultures: 08/10 BC: Staph-Coagulase Positive; Gram Positive Cocci in clusters. Likely due to contamination. Culture not done. 08/11 BC: Negative 08/12 Sputum: Normal growth Antibiotics: - Recommendation: 1. Continue PO Levofloxacin and IV Vancomycin (both 08/11 to present) 2. To add probiotics twice daily - Plan - Pneumonia: Continue current IV antibiotics; Currently patient is on 3.5 L of oxygen support with no signs of having cardiopulmonary distress - Moderate protein calorie malnutrition: Patient's prealbumin is low, 9.1. Recommend to have protein supplement WITHOUT dairy (per patient request) to support adequate immunity for recovery. - Anemia of chronic disease: Keep monitoring H&H - COPD - HTN - Lung cancer stage IV and mets to liver ID will monitoring the patient closely for signs of infection with fever and WBC trends. Case has been discussed with Dr. Traylor, N Physician Review: Patient Assessed, Agree with Above Assessment and Plan
[2022-08-13] MEDS: LACTOBACILLUS/ACIDOPHILUS TAB PO SCH ×2 (11:00→21:38)
[2022-08-13] MEDS: FLUCONAZOLE 200mg IVPB 200 MG/100 ML BAG IV SCH (14:18)
[2022-08-13] MEDS: NA CHLORIDE 0.9% 1,000 ML IV SCH ×2 (14:21→21:59)
--- NOTE | 2022-08-13 15:02 | RAD REPORT ---
EXAM DESCRIPTION: RAD - Barium Swallow Modified - 08/13/2022 2:34 pm CLINICAL HISTORY: difficulty swallowing COMPARISON: No comparisons TECHNIQUE: The patient was given liquid, semi-solid and solid forms of barium. Lateral view fluorosc opic imaging was performed in conjunction with speech pathology service. FINDINGS: Laryngeal penetration: Not cleared with thin by straw only Mild swallow delay with premature posterior spillage. Reduced esophageal clearance of Barium tablet Total fluoroscopy time: 2 minutes 21 seconds
--- NOTE | 2022-08-13 17:16 | RAD REPORT ---
EXAM DESCRIPTION: RAD - Chest Single View - 08/13/2022 5:03 pm CLINICAL HISTORY: f/u opacities COMPARISON: Chest Single View dated 08/09/2022; Chest Single View dated 03/06/2022; Chest For Pe Angio dated 08/10/2022; Barium Swallow Modified dated 08/13/2022 FINDINGS: Lines: Left IJ approach Port-A-Cath with tip overlying the SVC . Lungs: Ill-defined airspace disease present the left greater than right lung base. Emphysema. Pleural: No significant pleural effusions or pneumothorax. Cardiac: The heart size is within normal limits. Mediastinum: Within normal limits. Bones: No acute fractures. Other: None IMPRESSION: Emphysema with new basilar airspace disease that may reflect a combination of atelectasi s, pneumonia, and pleural fluid. The airspace disease has worsened since 08/09/2022.
[2022-08-13] MEDS: TRAZODONE 50 MG TABLET PO SCH (21:38)
[2022-08-14] MEDS: VANCOMYCIN 1 GM in NA CHLORIDE 0.9% 250 ML IVPB SCH ×2 (03:00→15:30)
--- NOTE | 2022-08-14 06:47 | P.PN ---
Date of Service: 08/14/22 Subjective: concern for esophageal dysmotility on MBS yesterday GI consulted, esophogram today pt reports feeling better, breathing easier has not ambulated much ROS: A complete review of systems was performed and is negative except as mentioned above Physical Exam: Gen: NAD, AOx3 HEENT: normal conjunctiva, sclera anicteric CV: regular rate & rhythm, no edema Pulm: non-labored respirations on 3L NC, diminished at bases Abd: soft, non-tender, non-distended Neuro: normal speech, normal affect, moves all extremities vitals reviewed Problem List acute on chronic hypoxemic respiratory failure secondary to acute on chronic CO PD exacerbation and multifocal pneumonia acute on chronic COPD exacerbation (2-2.5L NC at home) sepsis secondary to multifocal pneumonia Stage IV Lung cancer (mets to liver) on chemotherapy HTN Sepsis resolved possible aspiration pneumonia - vanc/levaquin continue empiric antibiotics ID consulted f/u cultures - micrococcus in 1 of blood cultures, rest are negative; suspect contaminant will discuss with ID, patient with weakened immune system, on chemo repeat labs in AM Continue IV diflucan for oral & esophageal candidiasis suspect this is contributing / cause of dysphagia speech therapy [place] [facility] [place] - dysmotility of esophagus GI consulted - barium swallow 08/14 ordered for further eval; r/o achalasia/narrowing diet as tolerated for now wean O2 as tolerated pulm consulted acute on chronic COPD, on 2-2.5L NC at home Dysmotility, esophageal ?multifactorial - pt with h/o radiation for lung CA, recurrent thrush possible esophageal candidiasis, on diflucan IV GI consulted for eval VTE: lovenox Code: DNR 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
[2022-08-14 07:19] LABS: Absolute Lymphocytes (CBC) 0.3 K/uL (0.7-4.9); Hematocrit 34.5 % (36.0-45.0); Lymphocytes % 4.9 % (15.3-44.8); MCV 94.5 fL (80-100); MPV 6.6 fL (7.6-11.3); RBC Red Blood Cell Count 3.65 M/uL (3.86-4.86)
[2022-08-14 07:33] LABS: Albumin 2.1 g/dL (3.4-5.0); Bilirubin Total 0.5 mg/dL (0.2-1.0); Potassium 3.9 mmol/L (3.5-5.1); Protein, Total 5.3 g/dL (6.4-8.2)
[2022-08-14] MEDS: IPRATROPIUM BROM 0.5MG/2.5ML NEB PRN (07:40)
[2022-08-14] MEDS: ALBUTEROL 2.5 MG/3 ML NEB SOL NEB PRN (07:40)
[2022-08-14] MEDS: LACTOBACILLUS/ACIDOPHILUS TAB PO SCH ×2 (09:00→21:45)
[2022-08-14] MEDS: levoFLOXacin 750 MG TAB PO SCH (09:00)
[2022-08-14] MEDS: ROFLUMILAST 500 MCG TABLET PO SCH (09:00)
[2022-08-14] MEDS: LEVOTHYROXINE SOD 0.125 MG TAB PO SCH (09:00)
[2022-08-14] MEDS: LIOTHYRONINE SOD 5 MCG TAB PO SCH (09:00)
[2022-08-14] MEDS: SERTRALINE HCL 100 MG TAB PO SCH (09:00)
[2022-08-14] MEDS: ROSUVASTATIN 10 MG TAB PO SCH (09:00)
[2022-08-14] MEDS: DONEPEZIL HCL 5 MG TAB PO SCH ×2 (09:00→21:46)
[2022-08-14] MEDS: MIDODRINE HCL 5 MG TABLET PO SCH (09:00)
[2022-08-14] MEDS: HOME MED 1 EA UNK (Fluticasone/Umeclidin/Vilanter [Trelegy Ellipta 100-62.5-25] Blst.W.Dev IH SCH (09:00)
[2022-08-14] MEDS: predniSONE 20 MG TAB PO SCH ×2 (09:00→21:44)
[2022-08-14] MEDS ORDERED: FLUCONAZOLE 100 MG TAB PO SCH (09:00)
[2022-08-14] MEDS: Levofloxacin 750mg IV 750 MG/150 ML BAG IV SCH (10:30)
[2022-08-14] MEDS: NA CHLORIDE 0.9% 1,000 ML IV SCH ×2 (10:31→13:14)
--- NOTE | 2022-08-14 11:23 | P.PN ---
Subjective Date of Service: 08/14/22 Chief Complaint: Multifocal Pneumonia Patient was lying in bed with the daughters at the bedside. Patient reported feeling better. Currently on 3 L of oxygen support with O2 Sat of 97%. Physical Examination - Vital Signs Temperature: 97.0 F Blood Pressure: 147/67 Pulse: 88 Respirations: 18 Pulse Ox (%): 94 - Physical Exam General: Alert, In no apparent distress, Oriented x3 Respiratory: Clear to auscultation bilaterally, Diminished, Other (on 3 L of oxygen support) Cardiovascular: No edema, Normal pulses, Normal S1 S2 Gastrointestinal: Hypoactive Musculoskeletal: No swelling, No tenderness Integumentary: No rashes, No breakdown Neurological: Normal speech, Normal tone - Studies Acetaminophen (Acetaminophen 500 Mg Tab) 500 mg PO Q4HP PRN PRN Reason: Pain scale 2-4 (Mild) Last Admin: 08/10/22 03:02 Dose: 500 mg Albuterol Sulfate (Albuterol 2.5 Mg/3 Ml Neb Bindu) 2.5 mg NEB [id number] PRN PRN Reason: SHORTNESS OF BREATH Last Admin: 08/14/22 07:40 Dose: 2.5 mg Benzonatate (Benzonatate 100 Mg Cap) 100 mg PO TID PRN PRN Reason: COUGH Last Admin: 08/12/22 20:04 Dose: 100 mg Cetirizine HCl (Cetirizine Hcl 5 Mg Tablet) 5 mg PO DAILY PRN PRN Reason: ALLERGIES Donepezil HCl (Donepezil Hcl 5 Mg Tab) 10 mg PO BID [facility] Last Admin: 08/14/22 09:00 Dose: Not Given Enoxaparin Sodium (Enoxaparin 40 Mg/0.4 Ml) 40 mg SQ DAILY [facility] Last Admin: 08/13/22 09:00 Dose: Not Given Home Med (Fluticasone/Umeclidin/Vilanter [Trelegy Ellipta 100-62.5-25]) 0 aero IH Q24H [facility] Last Admin: 08/14/22 09:00 Dose: Not Given Sodium Chloride (Ns 1000 Ml Ivbag) 1,000 mls @ 75 mls/hr IV .[id number] [facility] Last Admin: 08/14/22 10:31 Dose: 1,000 mls Vancomycin HCl 1 gm/ Sodium (Chloride) 250 mls @ 250 mls/hr IVPB Q12H [facility]; Protocol Last Admin: 08/14/22 03:00 Dose: 250 mls Fluconazole (Diflucan 200 Mg/100 Ml Ivpb (Premix)) 200 mg in 100 mls @ 100 mls/hr IV Q24H [facility] Stop: 08/23/22 12:59 Levofloxacin/Dextrose (Levaquin 750 Mg/150 Ml Ivpb (Premix)) 750 mg in 150 mls @ 100 mls/hr IV DAILY [facility] Last Admin: 08/14/22 10:30 Dose: 150 mls Ipratropium [place] (Ipratropium Brom 0.5mg/2.5ml) 0.5 mg NEB [id number] PRN PRN Reason: SHORTNESS OF BREATH Last Admin: 08/14/22 07:40 Dose: 0.5 mg Lactobacillus Acidoph/Bulgaricus (Lactobacillus/Acidophilus Tab) 1 tab PO BID [facility] Last Admin: 08/14/22 09:00 Dose: Not Given Levothyroxine Sodium (Levothyroxine Sod 0.125 Mg Tab) 0.125 mg PO DAILY [facility] Last Admin: 08/14/22 09:00 Dose: Not Given Liothyronine Sodium (Liothyronine Sod 5 Mcg Tab) 5 mcg PO DAILY [facility] Last Admin: 08/14/22 09:00 Dose: Not Given Midodrine (Midodrine Hcl 5 Mg Tablet) 5 mg PO DAILY [facility] Last Admin: 08/14/22 09:00 Dose: Not Given Morphine Sulfate (Morphine 4 Mg/Ml Syr) 4 mg IV Q4H PRN PRN Reason: Pain scale 5-7 (Moderate) Ondansetron HCl (Ondansetron 4 Mg/2 Ml Vial) 4 mg IV Q6HP PRN PRN Reason: NAUSEA / VOMITING Prednisone (Prednisone 20 Mg Tab) 20 mg PO BID [facility] Last Admin: 08/14/22 09:00 Dose: Not Given Roflumilast (Roflumilast 500 Mcg Tablet) 500 mcg PO DAILY [facility] Last Admin: 08/14/22 09:00 Dose: Not Given Rosuvastatin Calcium (Rosuvastatin 10 Mg Tab) 5 mg PO DAILY [facility] Last Admin: 08/14/22 09:00 Dose: Not Given Sertraline HCl (Sertraline Hcl 100 Mg Tab) 100 mg PO DAILY [facility] Last Admin: 08/14/22 09:00 Dose: Not Given Sodium Chloride (Flush Normal Saline 10 Ml) 10 ml IV BID [facility] Last Admin: 08/14/22 10:31 Dose: 10 ml Trazodone HCl (Trazodone 50 Mg Tablet) 50 mg PO BEDTIME [facility] Last Admin: 08/13/22 21:38 Dose: 50 mg Assessment And Plan - Current Problems (Diagnosis) (1) Pneumonia Current Visit: Yes Status: Acute Plan: Currently patient is on 3 L of oxygen support and O2 Sat is 97% with no signs of having cardiopulmonary distress Cultures: 08/10 BC: Staph-Coagulase Positive; Gram Positive Cocci in clusters with Micrococcus species. Likely due to contamination. 08/11 BC: Negative 08/12 Sputum: Normal growth Antibiotics: - Was on PO Levofloxacin, 08/11 to 08/13 - Currently on IV Levofloxacin (08/14 -> ) and Vancomycin (08/11 ->) - Recommendation: 1. Continue IV Levofloxacin for 6 more days 2. Stop Vancomycin (both 08/11 to present) 3. Continue probiotics twice daily - Plan - Pneumonia: Continue current IV antibiotics; Currently patient is on 3 L of oxygen support with no signs of having cardiopulmonary distress - Moderate protein calorie malnutrition: Patient's prealbumin is low, 9.1. Recom mend to have protein supplement WITHOUT dairy (per patient request) to support adequate immunity for recovery. - Anemia of chronic disease: Keep monitoring H&H - COPD - HTN - Lung cancer stage IV and mets to liver ID will monitoring the patient closely for signs of infection with fever and WBC trends. Case has been discussed with Dr. Traylor N Physician Review: Patient Assessed, Agree with Above Assessment and Plan
[2022-08-14] MEDS: FLUCONAZOLE 200mg IVPB 200 MG/100 ML BAG IV SCH (13:13)
--- NOTE | 2022-08-14 13:33 | RAD REPORT ---
EXAM DESCRIPTION: RAD - Esophagram Only - 08/14/2022 1:00 pm CLINICAL HISTORY: r/o stenosis, dysmotility Dysphagia, difficulty swallowing COMPARISON: Barium Swallow Modified dated 08/13/2022 FINDINGS: An esophagram was performed and shows normal bolus formation and normal initiation of swal lowing. Primary peristalsis is normal with no intrinsic or extrinsic esophageal abnormalities. Total fluoroscopy time: 54 seconds Number of images acquired: 9 IMPRESSION: Unremarkable barium esophagram.
[2022-08-14] MEDS: TRAZODONE 50 MG TABLET PO SCH (21:44)
[2022-08-15] MEDS: VANCOMYCIN 1 GM in NA CHLORIDE 0.9% 250 ML IVPB SCH (03:23)
[2022-08-15 06:27] LABS: Potassium 3.5 mmol/L (3.5-5.1)
--- NOTE | 2022-08-15 08:47 | P.PN ---
Subjective Date of Service: 08/15/22 Chief Complaint: Multifocal Pneumonia Patient sitting in bed in good spirit with the daughter at the bedside and stated feeling better with less diarrhea and improved. Currently on 3 L of oxygen support. Physical Examination - Vital Signs Temperature: 97.0 F Blood Pressure: 136/63 Pulse: 75 Respirations: 16 Pulse Ox (%): 94 - Physical Exam General: Alert, In no apparent distress, Oriented x3 Respiratory: Diminished, Other (on 3L of oxygen support) Cardiovascular: No edema, Normal pulses, Normal S1 S2 Gastrointestinal: Normal bowel sounds Musculoskeletal: No swelling, No tenderness Integumentary: No rashes, No breakdown Neurological: Normal speech, Normal tone - Studies Current medicaions: Acetaminophen (Acetaminophen 500 Mg Tab) 500 mg PO Q4HP PRN PRN Reason: Pain scale 2-4 (Mild) Last Admin: 08/10/22 03:02 Dose: 500 mg Albuterol Sulfate (Albuterol 2.5 Mg/3 Ml Neb Bindu) 2.5 mg NEB [id number] PRN PRN Reason: SHORTNESS OF BREATH Last Admin: 08/14/22 07:40 Dose: 2.5 mg Benzonatate (Benzonatate 100 Mg Cap) 100 mg PO TID PRN PRN Reason: COUGH Last Admin: 08/12/22 20:04 Dose: 100 mg Cetirizine HCl (Cetirizine Hcl 5 Mg Tablet) 5 mg PO DAILY PRN PRN Reason: ALLERGIES Donepezil HCl (Donepezil Hcl 5 Mg Tab) 10 mg PO BID [facility] Last Admin: 08/14/22 21:46 Dose: 10 mg Enoxaparin Sodium (Enoxaparin 40 Mg/0.4 Ml) 40 mg SQ DAILY [facility] Last Admin: 08/13/22 09:00 Dose: Not Given Home Med (Fluticasone/Umeclidin/Vilanter [Trelegy Ellipta 100-62.5-25]) 0 aero IH Q24H [facility] Last Admin: 08/14/22 09:00 Dose: Not Given Fluconazole (Diflucan 200 Mg/100 Ml Ivpb (Premix)) 200 mg in 100 mls @ 100 mls/hr IV Q24H [facility] Stop: 08/23/22 12:59 Last Admin: 08/14/22 13:13 Dose: 100 mls Levofloxacin/Dextrose (Levaquin 750 Mg/150 Ml Ivpb (Premix)) 750 mg in 150 mls @ 100 mls/hr IV DAILY [facility] Last Admin: 08/14/22 10:30 Dose: 150 mls Vancomycin HCl 1.25 gm/ Sodium (Chloride) 250 mls @ 166.667 mls/hr IVPB Q18H [facility]; Protocol Ipratropium [place] (Ipratropium Brom 0.5mg/2.5ml) 0.5 mg NEB [id number] PRN PRN Reason: SHORTNESS OF BREATH Last Admin: 08/14/22 07:40 Dose: 0.5 mg Lactobacillus Acidoph/Bulgaricus (Lactobacillus/Acidophilus Tab) 1 tab PO BID [facility] Last Admin: 08/14/22 21:45 Dose: 1 tab Levothyroxine Sodium (Levothyroxine Sod 0.125 Mg Tab) 0.125 mg PO DAILY [facility] Last Admin: 08/14/22 09:00 Dose: Not Given Liothyronine Sodium (Liothyronine Sod 5 Mcg Tab) 5 mcg PO DAILY [facility] Last Admin: 08/14/22 09:00 Dose: Not Given Midodrine (Midodrine Hcl 5 Mg Tablet) 5 mg PO DAILY [facility] Last Admin: 08/14/22 09:00 Dose: Not Given Morphine Sulfate (Morphine 4 Mg/Ml Syr) 4 mg IV Q4H PRN PRN Reason: Pain scale 5-7 (Moderate) Ondansetron HCl (Ondansetron 4 Mg/2 Ml Vial) 4 mg IV Q6HP PRN PRN Reason: NAUSEA / VOMITING Potassium Bicarbonate (Potassium 25 Meq Efferv Tab) 25 meq PO 1X ONE Stop: 08/15/22 09:01 Prednisone (Prednisone 20 Mg Tab) 20 mg PO BID [facility] Last Admin: 08/14/22 21:44 Dose: Not Given Roflumilast (Roflumilast 500 Mcg Tablet) 500 mcg PO DAILY [facility] Last Admin: 08/14/22 09:00 Dose: Not Given Rosuvastatin Calcium (Rosuvastatin 10 Mg Tab) 5 mg PO DAILY [facility] Last Admin: 08/14/22 09:00 Dose: Not Given Sertraline HCl (Sertraline Hcl 100 Mg Tab) 100 mg PO DAILY [facility] Last Admin: 08/14/22 09:00 Dose: Not Given Sodium Chloride (Flush Normal Saline 10 Ml) 10 ml IV BID [facility] Last Admin: 08/14/22 21:00 Dose: 10 ml Trazodone HCl (Trazodone 50 Mg Tablet) 50 mg PO BEDTIME [facility] Last Admin: 08/14/22 21:44 Dose: 50 mg Assessment And Plan - Current Problems (Diagnosis) (1) Pneumonia Current Visit: Yes Status: Acute Plan: Currently patient is on 3 L of oxygen support with no signs of having cardiopulmonary distress Cultures: 08/10 BC: Staph-Coagulase Positive; Gram Positive Cocci in clusters with Micrococcus species. Likely due to contamination. 08/11 BC: Negative 08/12 Sputum: Normal growth Antibiotics: - Was on PO Levofloxacin, 08/11 to 08/13 - Currently on IV Levofloxacin (08/14 -> ) and Vancomycin (08/11 ->) - Recommendation: 1. Continue IV Levofloxacin and can switch to PO when tolerates. Need total of Levofloxacin for 10 more days (08/15-08/24) 2. To stop Vancomycin (both 08/11 to present) 3. Continue probiotics twice daily - Plan - Pneumonia: Continue current IV antibiotics and can switch to PO when tolerates for total of 10 more days (08/15-08/24); Currently patient is on 3 L of oxygen support with no signs of having cardiopulmonary distress - Moderate protein calorie malnutrition: Patient's prealbumin is low, 9.1. Recommend to have protein supplement WITHOUT dairy (per patient request) to support adequate immunity for recovery. - Anemia of chronic disease: Keep monitoring H&H - COPD - HTN - Lung cancer stage IV and mets to liver ID will monitoring the patient closely for signs of infection with fever and WBC trends. Case has been discussed with Dr. Traylor, N Physician Review: Patient Assessed, Agree with Above Assessment and Plan
[2022-08-15] MEDS ORDERED: POTASSIUM 25 MEQ EFFERV TAB PO ONE (09:00)
[2022-08-15] MEDS: HOME MED 1 EA UNK (Fluticasone/Umeclidin/Vilanter [Trelegy Ellipta 100-62.5-25] Blst.W.Dev IH SCH (09:00)
[2022-08-15] MEDS: ENOXAPARIN 40 MG/0.4 ML SQ SCH (10:27)
[2022-08-15] MEDS: MIDODRINE HCL 5 MG TABLET PO SCH (10:28)
[2022-08-15] MEDS: LIOTHYRONINE SOD 5 MCG TAB PO SCH (10:29)
[2022-08-15] MEDS: LACTOBACILLUS/ACIDOPHILUS TAB PO SCH ×2 (10:29→21:45)
[2022-08-15] MEDS: ROFLUMILAST 500 MCG TABLET PO SCH (10:29)
[2022-08-15] MEDS: DONEPEZIL HCL 5 MG TAB PO SCH ×2 (10:29→21:45)
[2022-08-15] MEDS: LEVOTHYROXINE SOD 0.125 MG TAB PO SCH (10:30)
[2022-08-15] MEDS: SERTRALINE HCL 100 MG TAB PO SCH (10:30)
[2022-08-15] MEDS: ROSUVASTATIN 10 MG TAB PO SCH (10:30)
[2022-08-15] MEDS: predniSONE 20 MG TAB PO SCH ×2 (10:30→21:00)
[2022-08-15] MEDS: Levofloxacin 750mg IV 750 MG/150 ML BAG IV SCH (10:35)
[2022-08-15] MEDS: FLUCONAZOLE 200mg IVPB 200 MG/100 ML BAG IV SCH (12:09)
[2022-08-15] MEDS ORDERED: VANCOMYCIN 1.25 GM in NA CHLORIDE 0.9% 250 ML IVPB SCH (21:00)
--- NOTE | 2022-08-15 21:15 | P.PN ---
Date of Service: 08/15/22 Subjective: no issue on esophogram feels better no diarrhea last night / this morning ROS: A complete review of systems was performed and is negative except as mentioned above Physical Exam: Gen: NAD, AOx3 HEENT: normal conjunctiva, sclera anicteric CV: regular rate & rhythm, no edema Pulm: non-labored respirations on 3L NC, diminished at bases Abd: soft, non-tender, non-distended Neuro: normal speech, normal affect, moves all extremities vitals reviewed Problem List acute on chronic hypoxemic respiratory failure secondary to acute on chronic COPD exacerbation and multifocal pneumonia acute on chronic COPD exacerbation (2-2.5L NC at home) sepsis secondary to multifocal pneumonia Stage IV Lung cancer (mets to liver) on chemotherapy HTN Sepsis resolved possible aspiration pneumonia - continue levaquin; vanc dc'd continue empiric antibiotics ID consulted f/u cultures - micrococcus in 1 of blood cultures, rest are negative; suspect contaminant discussed with ID, patient with weakened immune system, on chemo recommend 10 more days of levaquin, end date: 08/24 repeat labs in AM Continue IV diflucan for oral & esophageal candidiasis suspect this is contributing / cause of dysphagia speech therapy consulted MBS 08/13 - dysmotility of esophagus GI consulted - barium swallow 08/14 - no issue; f/u as outpatient, for EGD in near future diet as tolerated for now wean O2 as tolerated pulm consulted; steroids acute on chronic COPD, on 2-2.5L NC at home Dysmotility, esophageal ?multifactorial - pt with h/o radiation for lung CA, recurrent thrush possible esophageal candidiasis, on diflucan IV - complete full 14 days GI consulted for eval - outpatient EGD VTE: lovenox Code: DNR Dispo: 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
[2022-08-15] MEDS: TRAZODONE 50 MG TABLET PO SCH (21:45)
[2022-08-16 08:03] VITALS: BP 133/67; TEMP 97.4
[2022-08-16] MEDS: HOME MED 1 EA UNK (Fluticasone/Umeclidin/Vilanter [Trelegy Ellipta 100-62.5-25] Blst.W.Dev IH SCH (09:00)
[2022-08-16] MEDS: SERTRALINE HCL 100 MG TAB PO SCH (09:19)
[2022-08-16] MEDS: ENOXAPARIN 40 MG/0.4 ML SQ SCH (09:19)
[2022-08-16] MEDS: DONEPEZIL HCL 5 MG TAB PO SCH (09:19)
[2022-08-16] MEDS: ROFLUMILAST 500 MCG TABLET PO SCH (09:19)
[2022-08-16] MEDS: LIOTHYRONINE SOD 5 MCG TAB PO SCH (09:19)
[2022-08-16] MEDS: LACTOBACILLUS/ACIDOPHILUS TAB PO SCH (09:19)
[2022-08-16] MEDS: predniSONE 20 MG TAB PO SCH (09:19)
[2022-08-16] MEDS: Levofloxacin 750mg IV 750 MG/150 ML BAG IV SCH (09:19)
[2022-08-16] MEDS: LEVOTHYROXINE SOD 0.125 MG TAB PO SCH (09:19)
[2022-08-16] MEDS: ROSUVASTATIN 10 MG TAB PO SCH (09:19)
[2022-08-16] MEDS: MIDODRINE HCL 5 MG TABLET PO SCH (09:19)
[2022-08-16 09:24] VITALS: O2SAT 93
--- NOTE | 2022-08-26 23:06 | P.DS ---
Admission Date: 08/09/22 Discharge Date: 08/16/22 Disposition: TRANSFER TO HALFWAY Discharge Condition: FAIR Reason for Admission: Multifocal Pneumonia Consultations: Infectious Disease Pulmonology Brief History of Present Illness: 71-year-old female past medical history of COPD, hypertension, stage IV lung cancer with mets to the liver on chemotherapy (last session 1 month ago) who presented to the emergency department with complaints of shortness of breath and hypoxia. She typically requires 2-2.5 L O2 NC and saturates in the low 90s but she was noted to be saturating 80%. Her labs are significant for WBC 13.6, Hemoglobin 10.8, BUN 26, BNP 2500. ABG with a PCO2 of 45, PO2 63. Chest CT showed advanced chronic lung changes and concerns for underlying multifocal pneumonia. She does still smoke daily and has DNR in place. Patient is admitted for further management. Hospital Course: Problem List acute on chronic hypoxemic respiratory failure secondary to acute on chronic COPD exacerbation and multifocal pneumonia acute on chronic COPD exacerbation sepsis secondary to multifocal pneumonia Stage IV Lung cancer (mets to liver) on chemotherapy HTN Suspected oral and esophageal candidiasis esophageal dysmotility Patient improved and received antibiotic and steroid treatment throughout hospitalization. Pulmonology and Infectious disease were consulted. Cultures were obtained, 1/4 of initial blood culture was positive, grew micrococcus. repeat blood culture within 24hrs was negative. ID felt this was contaminant. However given clinical setting and history, patient will complete 2 week course of levaquin. Continue prednisone for 3 more days White plaqueing was noted in oral cavity. She reported some increased difficulty swallowing recently, and history of recurrent thrush. Patient received IV diflucan, and will continue oral diflucan to complete a 2 week course, as recommended by GI. Modified barium noted some likely esophageal dysmotility. GI was consulted, and esophogram was performed - and was normal, no narrowing/stenosis/achalasia, normal peristalsis was seen. No further workup or treatment at this time. GI, Dr. Izquierdo, recommended follow up as outpatient in next few weeks to undergo EGD. Recommend holding Lasix for next few days. Monitor oral intake. If develops swelling, eating/drinking as usual, restart. Vital Signs/Physical Exam: Temp Pulse Resp BP Pulse Ox 97.4 F 73 16 133/67 94 08/16/22 08:00 08/16/22 08:00 08/16/22 08:00 08/16/22 08:00 08/16/22 08:00 Physical Exam: Gen: NAD, AOx3 HEENT: normal conjunctiva, sclera anicteric CV: regular rate & rhythm, no edema Pulm: non-labored respirations on 2L NC, diminished at bases Abd: soft, non-tender, non-distended Neuro: normal speech, normal affect, moves all extremities Laboratory Data at Discharge: WBC 5.70 K/uL (4.3-10.9) 08/14/22 06:53 Hgb 11.3 g/dL (12.0-15.0) L 08/14/22 06:53 Hct 34.5 % (36.0-45.0) L 08/14/22 06:53 Plt Count 199 K/uL (152-406) 08/14/22 06:53 Sodium 133 mmol/L (136-145) L 08/16/22 06:03 Potassium 4.0 mmol/L (3.5-5.1) D 08/16/22 06:03 BUN 9 mg/dL (7-18) 08/16/22 06:03 Creatinine 0.47 mg/dL (0.55-1.02) L 08/16/22 06:03 Glucose 93 mg/dL (74-106) 08/16/22 06:03 Phosphorus 3.2 mg/dL (2.5-4.9) 08/10/22 03:56 Magnesium 1.9 mg/dL (1.6-2.4) 08/10/22 03:56 Total Bilirubin 0.5 mg/dL (0.2-1.0) 08/14/22 06:53 AST 44 U/L (15-37) H 08/14/22 06:53 ALT 45 U/L (13-56) 08/14/22 06:53 Alkaline Phosphatase 115 U/L (45-117) 08/14/22 06:53 Home Medications: Cetirizine HCl [Zyrtec*] 5 mg PO DAILY PRN 11/07/15 Levothyroxine Sodium [Unithroid] 125 mcg PO DAILY 11/07/15 Acetaminophen [Tylenol Arthritis] 650 mg PO BID PRN 08/10/22 Albuterol Sulfate [Albuterol Sulfate 0.083% Neb Soln] 1 aero NEB PRN PRN 08/10/22 Cannabis 0.5 ml SL DAILY 08/10/22 Donepezil HCl 10 mg PO BID 08/10/22 Fluticasone/Umeclidin/Vilanter [Trelegy Ellipta 100-62.5-25] 100 aero NEB Q24H 08/10/22 Furosemide 20 mg PO Q24H 08/10/22 Liothyronine Sodium [Cytomel] 5 mcg PO 08/10/22 Midodrine HCl 5 mg PO DAILY 08/10/22 Roflumilast [Daliresp] 500 mcg PO DAILY 08/10/22 Rosuvastatin Calcium 5 mg PO DAILY 08/10/22 Sertraline [Zoloft*] 100 mg PO DAILY 08/10/22 Trazodone [Desyrel*] 50 mg PO DAILY 08/10/22 Fluconazole 200 mg PO DAILY 9 Days #9 tab 08/16/22 levoFLOXacin [Levaquin*] 750 mg PO DAILY 9 Days #9 tab 08/16/22 Ensure Enlive 237 ml PO BID can 08/21/22 Levetiracetam [Keppra] 250 mg PO BID #60 tab 08/21/22 OLANZapine [Zyprexa*] 10 mg PO BEDTIME 08/21/22 New Medications: Fluconazole 200 mg PO DAILY 9 Days #9 tab levoFLOXacin [Levaquin*] 750 mg PO DAILY 9 Days #9 tab Physician Discharge Instructions: Problem List acute on chronic hypoxemic respiratory failure secondary to acute on chronic COPD exacerbation and multifocal pneumonia acute on chronic COPD exacerbation sepsis secondary to multifocal pneumonia Stage IV Lung cancer (mets to liver) on chemotherapy HTN Suspected oral and esophageal candidiasis esophageal dysmotility Patient improved and received antibiotic and steroid treatment throughout hospitalization. Pulmonology and Infectious disease were consulted. Cultures were obtained, 1/4 of initial blood culture was positive, grew micrococcus. repeat blood culture within 24hrs was negative. ID felt this was contaminant. However given clinical setting and history, patient will complete 2 week course of levaquin. Continue prednisone for 3 more days White plaqueing was noted in oral cavity. She reported some increased difficulty swallowing recently, and history of recurrent thrush. Patient received IV diflucan, and will continue oral diflucan to complete a 2 week course, as recommended by GI. Modified barium noted some likely esophageal dysmotility. GI was consulted, and esophogram was performed - and was normal, no narrowing/stenosis/achalasia, normal peristalsis was seen. No further workup or treatment at this time. GI, Dr. Izquierdo, recommended follow up as outpatient in next few weeks to undergo EGD. Recommend holding Lasix for next few days. Monitor oral intake. If develops swelling, eating/drinking as usual, restart. Followup: Rosendo Izquierdo MD [ACTIVE - CAN ADMIT] - 1-2 Weeks Time spent managing pt's care (in minutes): 45
== END 2022-08-16 11:41 | DRG 871 ==
LOC: ER 19:27 → ERHOLD 22:35 → 2ND 23:47
PROVIDERS: ADMIT Internal Medicine; ATTEND Hospitalist
PROC: 5A09557 Assistance with Respiratory Ventilation, Greater than 96 Consecutive Hours, Continuous Positive Airway Pressure (ICD-10-PCS; principal; 2022-08-11)
DX: A41.9 Sepsis, unspecified organism (principal); J18.9 Pneumonia, unspecified organism; J96.21 Acute and chronic respiratory failure with hypoxia; C22.9 Malignant neoplasm of liver, not specified as primary or secondary; C34.80 Malignant neoplasm of overlapping sites of unspecified bronchus and lung; B37.81 Candidal esophagitis; E44.0 Moderate protein-calorie malnutrition; Z68.1 Body mass index [BMI] 19.9 or less, adult; B37.0 Candidal stomatitis; J43.9 Emphysema, unspecified; I10 Essential (primary) hypertension; E03.9 Hypothyroidism, unspecified; E86.0 Dehydration; D63.8 Anemia in other chronic diseases classified elsewhere; K22.89 Other specified disease of esophagus; F17.210 Nicotine dependence, cigarettes, uncomplicated; Z66 Do not resuscitate; Z88.8 Allergy status to other drugs, medicaments and biological substances; Z85.05 Personal history of malignant neoplasm of liver; Z99.81 Dependence on supplemental oxygen; Z79.890 Hormone replacement therapy; Z79.899 Other long term (current) drug therapy; Z90.710 Acquired absence of both cervix and uterus; Z85.118 Personal history of other malignant neoplasm of bronchus and lung; Z20.822 Contact with and (suspected) exposure to COVID-19
CPT/HCPCS: 36415; 71045; 71275; 74220; 74230; 80048; 80053; 80202; 82805; 83605; 83735; 83880; 84100; 84134; 84145; 84439; 84443; 84481; 84484; 85025; 87040; 87070; 87205; 87811; 92611; 93005; 94002; 94003; 94010; 94640; 94760; 96360; 97110; 97116; 97161; 97530; 99285; J1450; J1650; J2543; J3370; J3480; J7030; J7040; J7050; J7512; J7613; J7614; J7644; Q9967; U0003

== ENCOUNTER 2022-08-19 18:43 | Inpatient (IN) | payer OTHER, BC ==
--- NOTE | 2022-08-19 20:12 | RAD REPORT ---
EXAM DESCRIPTION: CT - Head Brain Wo Cont - 08/19/2022 7:31 pm CLINICAL HISTORY: AMS, possible seizure, lung cancer COMPARISON: No comparisons TECHNIQUE: Axial 5 mm thick images of the head were obtained without IV contrast. All CT scans are performed using dose optimization technique as appropriate and may include automated exposure control or mA/KV adjustment according to patient size. FINDINGS: No intracranial hemorrhage, mass, edema or shift of mid-line structures. No acute infarcti on changes seen. No abnormal extra-axial fluid collections. Mild to moderate atrophy changes are pres ent with ventricles in proportion to the amount of volume loss. Chronic ischemic changes are minimal. Mastoid air cells and visualized portions of the paranasal sinuses are clear. No acute bony findings. IMPRESSION: Negative non-contrast CT head examination for hemorrhage or focal intracranial abnormali ty. Atrophy chronic ischemic changes are present.
[2022-08-19 20:59] LABS: Absolute Lymphocytes (CBC) 0.1 K/uL (0.7-4.9); Hematocrit 30.6 % (36.0-45.0); Lymphocytes % 1.6 % (15.3-44.8); MCV 91.9 fL (80-100); MPV 6.9 fL (7.6-11.3); RBC Red Blood Cell Count 3.33 M/uL (3.86-4.86)
[2022-08-19 21:01] LABS: Protime INR 1.06
[2022-08-19 21:07] LABS: Albumin 2.6 g/dL (3.4-5.0); Bilirubin Direct 0.2 mg/dL (0-0.2); Bilirubin Total 0.5 mg/dL (0.2-1.0); Magnesium 2.1 mg/dL (1.6-2.4); Potassium 3.3 mmol/L (3.5-5.1); Protein, Total 5.8 g/dL (6.4-8.2); Troponin High Sensitivity 23.1 pg/mL (<58.9)
[2022-08-19 21:14] LABS: SARS-CoV-2 Antigen Rapid Res Negative (Negative)
--- NOTE | 2022-08-19 21:34 | RAD REPORT ---
EXAM DESCRIPTION: RAD - Chest Single View - 08/19/2022 8:17 pm CLINICAL HISTORY: lung cancer, sob, aspiration COMPARISON: Portable 08/13/2022 TECHNIQUE: AP portable chest image was obtained 08/19/2022 8:17 pm . FINDINGS: Extensive interstitial fibrotic lung disease is present. Pattern not clearly different fro m comparison. Severity could mask interstitial edema or infiltrate. Left side Port-A-Cath remains in place. Heart and vasculature are normal. No measurable pleural effus ion and no pneumothorax. No acute bony abnormality seen. No acute aortic findings suspected. IMPRESSION: Chronic interstitial lung disease similar to prior imaging. Severity could mask superimposed infiltrate or edema.
--- NOTE | 2022-08-19 22:39 | RAD REPORT ---
EXAM DESCRIPTION: CT - Abdomen Pelvis W Contrast - 08/19/2022 10:07 pm CLINICAL HISTORY: elevated LFTs, seizure history, lung cancer, liver cancer COMPARISON: Chest For Pe Angio dated 08/10/2022; Ct Skull/Thigh dated 08/02/2021 TECHNIQUE: Biphasic, helical CT imaging of the abdomen and pelvis was performed following 100 ml non -ionic IV contrast. Oral contrast: No. All CT scans are performed using dose optimization technique as appropriate and may include automated exposure control or mA/KV adjustment according to patient size. FINDINGS: Extensive emphysematous lung changes are present. There is fibrosis and numerous large bul la and bleb in each base. Small to moderate bilateral pleural effusions are present. Liver grossly abnormal. There is an overall diminished perfusion of the left lobe. Scattered througho ut both lobes of liver are numerous variably sized low-density irregularly marginated masses. This wo uld be consistent with the history of lung cancer metastatic to the liver. The July 2021 PET-CT [facility] showed 2 left lobe lesions. No portal vein abnormality identified. Cholecystectomy clips are pres ent. No abnormal biliary tree dilatation. Spleen and pancreas show no acute findings. Renal function is symmetric. Left kidney is much smaller than the right. Fullness of right renal pelv is is present. Hydroureter is not confirmed. No pyelonephritis or acute parenchymal process. No bladd er abnormalities. No adrenal abnormalities. No gastric dilatation gastric wall thickening. No acute large or small bowel finding. Dense contrast is present in the left-side of the colon from prior diagnostic study. No acute GI findings seen. No free air, free fluid or inflammatory stranding. No hernia, mass or bulky lymphadenopathy. No suspicious bony findings. IMPRESSION: Numerous liver metastatic lesions are present scattered throughout both lobes. The 2021 PET-CT indicated only 2 liver lesions. Current findings would support progressive metastatic disease in the liver. No obstruction, free air or surgically emergent finding. Small to moderate bilateral pleural effusions with extensive chronic fibrotic and emphysematous lung changes.
--- NOTE | 2022-08-19 22:49 | EDPHYS ---
Physician Documentation [facility] Name: Ginger Huerta Age: 71 yrs Sex: Female : 1950 Arrival Date: 08/19/2022 Time: 18:55 Bed 27 Private MD: ED Physician Neymar Gonzalez HPI: 08/19 20:12 This 71 yrs old Female presents to ER via EMS with complaints of seizure. rn 20:12 The patient presents after having a single isolated seizure, that lasted 3 minute(s). rn Character of seizure(s): Motor activity: generalized, Incontinence: none, Circulation: the patient did not experience evidence of pulse disturbance. Seizure onset: just prior to arrival. Associated injury: The patient did not suffer any apparent associated injury. Current symptoms: confusion. The patient has not experienced similar symptoms in the past. The patient has been recently been admitted at [facility]. Family reports recently admitted for aspiration and possible blood infection. Was eating dinner today and right arm went out, right face was "drooping", then began to exhibit seizure like activity. Has never had a seizure. Fell and maybe hit head 2 days ago. NO fever. NO chest pain/abd pain/vomiting/diarrhea. Does have swallowing issues and was coughing when eating tonight. Daughter states hasn't been "acting right" since recent admission, for about a week, and even this morning was not answering questions appropriately. . Historical: - Allergies: 18:59 Benadryl; ap3 - PMHx: 18:59 Anxiety; COPD; depressive disorder; Hypercholesterolemia; liver cancer; Lung Cancer; ap3 - PSHx: 18:59 Total abdominal hysterectomy; ap3 - Immunization history:: Client reports receiving the 2nd dose of the Covid vaccine. - Social history:: Smoking status: unknown. - Family history:: not pertinent. - Hospitalizations: : The patient was recently seen at [facility]. ROS: 20:12 Constitutional: Negative for fever, chills, and weight loss, Eyes: Negative for injury, rn pain, redness, and discharge, ENT: Negative for injury, pain, and discharge, Neck: Negative for injury, pain, and swelling, Cardiovascular: Negative for chest pain, palpitations, and edema, Respiratory: Negative for wheezing, and pleuritic chest pain, Abdomen/GI: Negative for abdominal pain, nausea, vomiting, diarrhea, and constipation, Back: Negative for injury and pain, MS/Extremity: Negative for injury and deformity, Skin: Negative for injury, rash, and discoloration, Neuro: Negative for headache, numbness, tingling Exam: 20:12 Constitutional: Thin female, no acute distress, using both hands to manipulate the rn remote/call button, moveing all 4 extremities, and covering herself with blanket without assistance. Head/Face: Normocephalic, atraumatic. Eyes: Pupils equal round and reactive to light, extra-ocular motions intact. ENT: dry MM Neck: Trachea midline, no thyromegaly or masses palpated, and no cervical lymphadenopathy. Supple, full range of motion without nuchal rigidity, or vertebral point tenderness. No Meningismus. Cardiovascular: Regular rate and rhythm. No pulse deficits. Respiratory: Mild tachypnea, no retractions Abdomen/GI: Soft, non-tender Skin: Warm, dry MS/ Extremity: Pulses equal, no cyanosis. Neuro: Awake, alert, moves all 4 extremities with equal strength, no facial droop, + left tongue with ecchymosis but no laceration. Sensation intact. Vital Signs: 18:57 BP 120 / 53; Pulse 78; Resp 19; Temp 98.1; Pulse Ox 95% on 2 lpm NC; Weight 55.34 kg; ap3 Height 5 ft. 3 in. (160.02 cm); 19:15 BP 108 / 51; Pulse 82; Resp 18; Pulse Ox 93% on 2.5 lpm NC; jb4 21:00 BP 119 / 60; Pulse 71; Resp 19; Pulse Ox 95% on 2.5 lpm NC; jb4 22:30 BP 116 / 57; Pulse 79; Resp 20; Pulse Ox 90% on 2.5 lpm NC; jb4 23:30 BP 136 / 72; Pulse 74; Resp 18; Pulse Ox 100% on 2.5 lpm NC; jb4 08/20 00:45 BP 113 / 64; Pulse 68; Resp 20; Pulse Ox 96% on 2.5 lpm NC; jb4 08/19 18:57 Body Mass Index 21.61 (55.34 kg, 160.02 cm) ap3 MDM: 08/19 18:59 Patient medically screened. rn 22:18 ED course: Pt does not meet any SIRS criteria. Elevated lactate could be secondary to rn seizure. CT abdomen added given change in LFTs.. 22:46 Differential diagnosis: cardiac arrhythmia, seizure, TIA, UTI, Pneumonia, electrolyte rn disorder. Data reviewed: vital signs, nurses notes, lab test result(s), EKG, radiologic studies, CT scan, plain films, and as a result, I will admit patient. Management of patient was discussed with the following: Hospitalist: Discussed case with hospitalist, will admit for neuro consultation and MRI. . Independent interpretation of the following test(s) in the Emergency Department X-Ray: My interpretation is CXR neg for pneumonia. Counseling: I had a detailed discussion with the patient and/or guardian regarding: the historical points, exam findings, and any diagnostic results supporting the discharge/admit diagnosis, lab results, radiology results. 22:47 Response to treatment: the patient's symptoms have markedly improved after treatment, rn and as a result, I will admit patient. 23:47 ED course: Repeat lactate normal. rn 08/19 19:14 Order name: Basic Metabolic Panel; Complete Time: 21:08/19 19:14 Order name: CBC with Diff; Complete Time: : 08/19 19:14 Order name: Hepatic Function; Complete Time: : 08/19 19:14 Order name: Magnesium; Complete Time: 21:18 08/19 19:14 Order name: Protime (+inr); Complete Time: 21:18 08/19 19:14 Order name: Ptt, Activated; Complete Time: 21: 08/19 19:14 Order name: Troponin High Sensitivity; Complete Time: 21:18 08/19 19:14 Order name: SARS RAPID; Complete Time: 21:18 08/19 19:14 Order name: Blood Culture Adult (2) rn 08/19 19:14 Order name: CK; Complete Time: 21:18 08/19 19:14 Order name: Lactate w/ 2H reflex if indic.; Complete Time: 21:18 08/19 19:14 Order name: BNP; Complete Time: 21: 08/19 23:46 Order name: Lactate Sepsis 2 HR Follow-up; Complete Time: 23:47 EDMS 08/19 23:48 Order name: Urine Dipstick-Ancillary; Complete Time: 23:50 EDVT 08/19 19:14 Order name: CT Head Brain wo Cont; Complete Time: 21:18 rn 08/19 19:14 Order name: Chest Single View XRAY; Complete Time: 22:17 rn 08/19 19:14 Order name: EKG; Complete Time: 19:15 rn 08/19 19:14 Order name: Cardiac monitoring; Complete Time: 20:46 rn 08/19 19:14 Order name: EKG - Nurse/Tech; Complete Time: 20:47 rn 08/19 19:14 Order name: IV Saline Lock; Complete Time: 20:42 rn 08/19 19:14 Order name: Labs collected and sent; Complete Time: 20:42 rn 08/19 19:14 Order name: NPO; Complete Time: 20:42 rn 08/19 21:29 Order name: CT Abd/Pelvis - IV Contrast Only; Complete Time: 22:44 rn 08/20 05:18 Order name: CBC with Automated Diff EDVT 08/20 05:35 Order name: Comprehensive Metabolic Panel EDVT 08/20 05:35 Order name: Phosphorus EDVT 08/20 05:35 Order name: Magnesium EDVT 08/20 11:28 Order name: MRI EDMS 08/20 11:31 Order name: MRI EDMS 08/20 12:10 Order name: MRI [facility] 08/19 19:14 Order name: O2 Per Protocol; Complete Time: 20:42 rn 08/19 19:14 Order name: O2 Sat Monitoring; Complete Time: 20:42 rn 08/19 19:14 Order name: Urine Dipstick-Ancillary (obtain specimen); Complete Time: 23:59 rn Administered Medications: No medications were administered Disposition Summary: 08/19/22 22:48 Hospitalization Ordered Hospitalization Status: Inpatient Admission rn Provider: Bandar Rod rn Condition: Stable rn Problem: new rn Symptoms: have improved rn Bed/Room Type: Standard rn Location: Telemetry/MedSurg (Inpatient)(08/20/22 15:37) 6 Room Assignment: [facility](08/20/22 15:37) [facility] Diagnosis - Other seizures - New onset rn - Hypokalemia rn - Dehydration rn Forms: - Medication Reconciliation Form rn - SBAR form rn Signatures: Dispatcher [facility] Neymar Gonzalez MD MD rn Garcia, Cindy, RN RN Candice Torres, RN RN alex3 Belle Carias, PAUL MILLER sb4 Kamryn Latham 6 Corrections: (The following items were deleted from the chart) :54 22:48 Telemetry/MedSurg (Inpatient) rn cg :54 22:48 rn cg 08/20 15:37 08/19 23:54 [facility] ER [facility] cg bc6 08/20 15:37 08/19 23:54 [facility]
--- NOTE | 2022-08-19 22:49 | ER ---
Nurse's Notes [facility] Name: Ginger Huerta Age: 71 yrs Sex: Female : 1950 Arrival Date: 08/19/2022 Time: 18:55 Bed 27 Private MD: Diagnosis: Other seizures-New onset;Hypokalemia;Dehydration Presentation: 08/19 18:57 Chief complaint: EMS states: they were called to [facility] for the complaint of the ap3 patient having seizure. the patient has no hx of seizures. it is reported the seizure started at 1810, and lasted approx 2 minutes. no medications were given. patient is now a/o X's 4. Coronavirus screen: At this time, the client does not indicate any symptoms associated with coronavirus-19. Ebola Screen: No symptoms or risks identified at this time. Initial Sepsis Screen: Does the patient meet any 2 criteria? No. Patient's initial sepsis screen is negative. Does the patient have a suspected source of infection? No. Patient's initial sepsis screen is negative. Risk Assessment: Do you want to hurt yourself or someone else? Patient reports no desire to harm self or others. Onset of symptoms was August 19, 2022 at 18:10. 18:57 Method Of Arrival: EMS: [facility] ap3 18:57 Acuity: LILIAN 3 ap3 Triage Assessment: 18:59 General: Appears in no apparent distress. Behavior is calm, cooperative. Pain: Denies ap3 pain. Neuro: Level of Consciousness is awake, alert, obeys commands, Oriented to person, place, time, situation, Seizure activity reported prior to arrival. Cardiovascular: Patient's skin is warm and dry. Respiratory: Airway is patent Respiratory effort is even, unlabored, Respiratory pattern is regular, symmetrical. Historical: - Allergies: 18:59 Benadryl; ap3 - PMHx: 18:59 Anxiety; COPD; depressive disorder; Hypercholesterolemia; liver cancer; Lung Cancer; ap3 - PSHx: 18:59 Total abdominal hysterectomy; ap3 - Immunization history:: Client reports receiving the 2nd dose of the Covid vaccine. - Social history:: Smoking status: unknown. - Family history:: not pertinent. - Hospitalizations: : The patient was recently seen at [facility]. Screenin:00 Abuse screen: Denies threats or abuse. Nutritional screening: No deficits noted. ap3 Tuberculosis screening: No symptoms or risk factors identified. Assessment: 19:00 General: Appears in no apparent distress. comfortable, Behavior is calm, cooperative, jb4 appropriate for age. Pain: Denies pain. Neuro: Level of Consciousness is awake, lethargic, Oriented to person, place, time, situation. Cardiovascular: Patient's skin is warm and dry. Respiratory: Airway is patent Respiratory effort is even, unlabored, Respiratory pattern is regular, symmetrical. GI: No signs and/or symptoms were reported involving the gastrointestinal system. : No signs and/or symptoms were reported regarding the genitourinary system. EENT: No signs and/or symptoms were reported regarding the EENT system. Derm: Skin is intact, Skin is pink, warm \T\ dry. 20:00 Reassessment: Patient appears in no apparent distress at this time. Patient and/or jb4 family updated on plan of care and expected duration. Pain level reassessed. Patient is alert, oriented x 3, equal unlabored respirations, skin warm/dry/pink. 21:00 Reassessment: Patient appears in no apparent distress at this time. Patient and/or jb4 family updated on plan of care and expected duration. Pain level reassessed. Patient is alert, oriented x 3, equal unlabored respirations, skin warm/dry/pink. 22:00 Reassessment: Pt is resting in bed with eyes closed, respirations are even and jb4 unlabored with no s/s of pain or distress noted. 23:00 Reassessment: Patient appears in no apparent distress at this time. No changes from jb4 previously documented assessment. Patient and/or family updated on plan of care and expected duration. Pain level reassessed. 08/20 00:00 Reassessment: Patient appears in no apparent distress at this time. No changes from jb4 previously documented assessment. Patient and/or family updated on plan of care and expected duration. Pain level reassessed. 01:00 Reassessment: Patient appears in no apparent distress at this time. No changes from jb4 previously documented assessment. Patient and/or family updated on plan of care and expected duration. Pain level reassessed. Vital Signs: 08/19 18:57 BP 120 / 53; Pulse 78; Resp 19; Temp 98.1; Pulse Ox 95% on 2 lpm NC; Weight 55.34 kg; ap3 Height 5 ft. 3 in. (160.02 cm); 19:15 BP 108 / 51; Pulse 82; Resp 18; Pulse Ox 93% on 2.5 lpm NC; jb4 21:00 BP 119 / 60; Pulse 71; Resp 19; Pulse Ox 95% on 2.5 lpm NC; jb4 22:30 BP 116 / 57; Pulse 79; Resp 20; Pulse Ox 90% on 2.5 lpm NC; jb4 23:30 BP 136 / 72; Pulse 74; Resp 18; Pulse Ox 100% on 2.5 lpm NC; jb4 08/20 00:45 BP 113 / 64; Pulse 68; Resp 20; Pulse Ox 96% on 2.5 lpm NC; jb4 08/19 18:57 Body Mass Index 21.61 (55.34 kg, 160.02 cm) ap3 ED Course: 08/19 18:55 Patient arrived in ED. ap3 18:59 Triage completed. ap3 18:59 Neymar Gonzalez MD is Attending Physician. rn 19:00 Arm band placed on left wrist. ap3 19:00 Patient has correct armband on for positive identification. Bed in low position. Call ap3 light in reach. Side rails up X2. Adult w/ patient. Pulse ox on. NIBP on. Door closed. Noise minimized. Warm blanket given. 19:32 CT Head Brain wo Cont In Process Unspecified. EDMS 20:19 Chest Single View XRAY In Process Unspecified. EDMS 20:47 Basic Metabolic Panel Sent. rv1 20:47 CBC with Diff Sent. rv1 20:47 Hepatic Function Sent. rv1 20:47 Magnesium Sent. rv1 20:47 Protime (+inr) Sent. rv1 20:47 Troponin High Sensitivity Sent. rv1 20:47 Ptt, Activated Sent. rv1 20:47 SARS RAPID Sent. rv1 20:47 Lactate w/ 2H reflex if indic. Sent. rv1 20:47 BNP Sent. rv1 20:47 CK Sent. rv1 20:48 Win Santos, RN is Primary Nurse. jb4 20:49 Inserted saline lock: 20 gauge in right antecubital area, using aseptic technique. rv1 Blood collected. 22:09 CT Abd/Pelvis - IV Contrast Only In Process Unspecified. EDMS 22:48 Bandar Rod is Hospitalizing Provider. rn 08/20 01:30 No provider procedures requiring assistance completed. Patient admitted, IV remains in jb4 place. Administered Medications: No medications were administered Medication: 08/19 19:00 VIS not applicable for this client. ap3 Outcome: 22:48 Decision to Hospitalize by Provider. rn 08/20 01:30 Admitted to ER Hold. Please see [facility] for further documentation. jb4 Condition: stable Discharge instructions given to patient, family, Instructed on the need for admit, Demonstrated understanding of instructions. 16:45 Patient left the ED. ko1 Signatures: Dispatcher [employer] EDMS Neymar Gonzalez MD MD rn Bryson, James, RN RN jb4 Candice Salmeron RN RN ap3 Alicja White RN RN ko1 Tia Cabral rv1 Corrections: (The following items were deleted from the chart) 08/19 20:49 20:46 Inserted saline lock: 20 gauge in left antecubital area, using aseptic technique. rv1 Blood collected. rv1
--- NOTE | 2022-08-19 23:14 | P.HP ---
Certification for Inpatient Patient admitted to: Inpatient With expected LOS: >2 Midnights Patient will require the following post-hospital care: None Practitioner: I am a practitioner with admitting privileges, knowledge of patient current condition, hospital course, and medical plan of care. Services: Services provided to patient in accordance with Admission requirements found in Title 42 Section 412.3 of the Code of Federal Regulations Patient History Date of Service: 08/20/22 Primary Care Provider: Lester Reason for admission: Seizure- New Onset History of Present Illness: Patient is a 71-year-old female with past medical history of COPD, hypertension, stage IV lung cancer with mets to the liver on chemotherapy who presented to the emergency department following a witnessed seizure. Patient does not have a known history of epilepsy. She was recently hospitalized and treated for pneumonia and discharged on PO levaquin. Family reports that she has not been acting like herself since discharge, and has progressively gotten more lethargic/confused. They state that today they noticed a facial droop before she seized. Imaging is negative for acute findings today. Labs are significant for sodium 131, potassium 3.3, chloride 87, bicarb 34, glucose 218, lactate 3 with repeat of 1.9, AST 101, ALT 66, alk phos 120, CK 560, BNP 2265. Vital signs have been stable. Patient is admitted for further management. Allergies aripiprazole [From Abilify] Adverse Reaction (Intermediate, Verified 08/13/22 21:40) Shortness of breath diphenhydramine [From Benadryl] Adverse Reaction (Mild, Verified 08/10/22 01:43) other Home medications list reviewed: Yes Home Medications: Cetirizine HCl [Zyrtec*] 5 mg PO DAILY PRN 11/07/15 Levothyroxine Sodium [Unithroid] 125 mcg PO DAILY 11/07/15 Acetaminophen [Tylenol Arthritis] 650 mg PO BID PRN 08/10/22 Albuterol Sulfate [Albuterol Sulfate 0.083% Neb Soln] 1 aero NEB PRN PRN 08/10/22 Cannabis 0.5 ml SL DAILY 08/10/22 Donepezil HCl 10 mg PO BID 08/10/22 Fluticasone/Umeclidin/Vilanter [Trelegy Ellipta 100-62.5-25] 100 aero NEB Q24H 08/10/22 Furosemide 20 mg PO Q24H 08/10/22 Liothyronine Sodium [Cytomel] 5 mcg PO 08/10/22 Midodrine HCl 5 mg PO DAILY 08/10/22 Roflumilast [Daliresp] 500 mcg PO DAILY 08/10/22 Rosuvastatin Calcium 5 mg PO DAILY 08/10/22 Sertraline [Zoloft*] 100 mg PO DAILY 08/10/22 Trazodone [Desyrel*] 50 mg PO DAILY 08/10/22 Fluconazole 200 mg PO DAILY 9 Days #9 tab 08/16/22 levoFLOXacin [Levaquin] 750 mg PO DAILY 9 Days #9 tab 08/16/22 predniSONE [Prednisone*] 20 mg PO DAILY 3 Days #3 tab 08/16/22 - Past Medical/Surgical History Diabetic: No -: COPD -: Stage 4 Lung Cancer on chemotherapy -: Liver Cancer -: Hypercholesterolemia -: Depression/anxiety -: dementia -: Total Abdominal Hysterectomy Psychosocial/ Personal History: Patient lives at [facility]. - Social History Smoking Status: Current every day smoker Alcohol use: No CD- Drugs: Yes Caffeine use: Yes Place of Residence: [facility] Review of Systems Unremarkable Physical Examination - Vital Signs Temperature: 98.1 F Blood Pressure: 119/60 Pulse: 71 Respirations: 19 Pulse Ox (%): 95 (2.5L NC) - Physical Exam General: Other (Sleepy but arousable) HEENT: Atraumatic, PERRLA, Other (Pale, dry mucous membranes), EOMI Neck: Supple, 2+ carotid pulse no bruit Respiratory: Diminished Cardiovascular: Regular rate/rhythm, Normal S1 S2 Gastrointestinal: Normal bowel sounds, No tenderness Musculoskeletal: No tenderness Integumentary: No rashes Neurological: Normal speech, Sensation intact - Studies Laboratory Data (last 24 hrs) 08/19/22 20:29: PT 11.7, INR 1.06, APTT 25.2 08/19/22 20:29: WBC 8.00, Hgb 10.4 L, Hct 30.6 L, Plt Count 180 08/19/22 20:29: Sodium 131 L, Potassium 3.3 L, BUN 18, Creatinine 0.94, Glucose 218 H, Magnesium 2.1, Total Bilirubin 0.5, AST 101 H, ALT 66 H, Alkaline Phosphatase 120 H Assessment and Plan - Problems (Diagnosis) (1) New onset seizure Current Visit: Yes Status: Acute (2) Dysphagia Current Visit: Yes Status: Chronic Qualifiers: Dysphagia type: unspecified Qualified Code(s): R13.10 - Dysphagia, unspecified (3) Anemia Current Visit: Yes Status: Chronic Qualifiers: Anemia type: other cause Other causes of anemia: chronic disease, neoplastic Qualified Code(s): D63.0 - Anemia in neoplastic disease (4) COPD (chronic obstructive pulmonary disease) Current Visit: Yes Status: Chronic Qualifiers: COPD type: emphysema Emphysema type: unspecified Qualified Code(s): J43.9 - Emphysema, unspecified (5) Hypertension Current Visit: Yes Status: Chronic Qualifiers: Hypertension type: primary hypertension Qualified Code(s): I10 - Essential (primary) hypertension (6) Hypothyroidism Current Visit: Yes Status: Chronic Qualifiers: Hypothyroidism type: unspecified Qualified Code(s): E03.9 - Hypothyroidism, unspecified (7) Liver cancer Current Visit: No Status: Chronic Qualifiers: Liver malignancy type: unspecified liver malignancy Qualified Code(s): C22.9 - Malignant neoplasm of liver, not specified as primary or secondary (8) Lung cancer Current Visit: Yes Status: Chronic Qualifiers: Laterality: unspecified laterality Lung location: overlapping sites Qualified Code(s): C34.80 - Malignant neoplasm of overlapping sites of unspecified bronchus and lung - Plan Patient is admitted for further management of seizure, new onset. Family reports that patient had an episode similar to this when she was off of her olanzapine but did not seize. MRI brain ordered as patient had facial drooping prior to seizure. Seizure precautions in place. Patient is much drowsier compared to when I admitted her previously, family agrees. Dr. Osullivan consulted, she is an established patient with him. Liver enzymes elevated compared to prior visit. CT abdomen pelvis showing known liver metastasis. Continue PO levaquin and fluconazole for treatment of pneumonia diagnosed on previous admission. Physical therapy and speech therapy consult. Monitor and replete electrolytes per protocol. Reconcile and continue home medications. SCDs for VTE prophylaxis. DNR Discharge Plan: [facility] Plan to discharge in: Greater than 2 days - Advance Directives Does patient have a Living Will: Yes Does patient have a Durable POA for Healthcare: Yes - Code Status/Comfort Care Code Status Assessed: Yes Code Status: Full Code Physician Review: Patient Assessed, Agree with Above Assessment and Plan Critical Care: No Time Spent Managing Pts Care (In Minutes): 50
[2022-08-19 23:48] LABS: Urine Blood Negative (Negative); Urine Glucose Negative (Negative); Urine Protein Negative (Negative); Urine Specific Gravity 1.025 (1.005-1.030)
[2022-08-20] MEDS ORDERED: ALBUTEROL 2.5 MG/3 ML NEB SOL NEB PRN ×2 (01:02→14:00)
[2022-08-20] MEDS ORDERED: ONDANSETRON 4 MG/2 ML VIAL IV PRN (01:02)
[2022-08-20] MEDS ORDERED: IPRATROPIUM BROM 0.5MG/2.5ML NEB PRN (01:02)
[2022-08-20] MEDS ORDERED: NS KCL 20MEQ 20 MEQ/1,000 ML BAG IV SCH (01:02)
[2022-08-20] MEDS ORDERED: NS KCL 20MEQ 1,000 ML IV ONE (02:43)
[2022-08-20 04:00] VITALS: BMI 21.6
[2022-08-20 05:17] LABS: Absolute Lymphocytes (CBC) 0.5 K/uL (0.7-4.9); Lymphocytes % 6.5 % (15.3-44.8); MPV 6.5 fL (7.6-11.3); RBC Red Blood Cell Count 3.05 M/uL (3.86-4.86)
[2022-08-20 05:35] LABS: Albumin 2.3 g/dL (3.4-5.0); Bilirubin Total 0.5 mg/dL (0.2-1.0); Magnesium 2.1 mg/dL (1.6-2.4); Potassium 3.6 mmol/L (3.5-5.1)
[2022-08-20] MEDS: levoFLOXacin 750 MG TAB PO SCH (09:00)
[2022-08-20] MEDS: FLUCONAZOLE 100 MG TAB PO SCH (09:00)
--- NOTE | 2022-08-20 09:38 | PN ---
Subjective: The patient lying in bed, being discharged today. No acute event. Feeling much better today. Currently on Levaquin and Diflucan. Objective: Vital Signs: Reviewed. Lungs: Basal crackles. Heart: S1, S2 regular. Abdomen: Soft, nontender. Bowel sounds present. Extremities: No edema. Laboratory Data: Labs reviewed. Assessment/plan: Chronic obstructive pulmonary disease exacerbation, currently on 2 L nasal cannula. Anemia of chronic disease. Continue current treatment, total of 2 weeks. We will follow the patie nt as needed. NF/MODL Voice ID: [id number] Report ID: [id number]
[2022-08-20] MEDS ORDERED: levoFLOXacin 750 MG TAB ONE (10:30)
[2022-08-20] MEDS ORDERED: FLUCONAZOLE 100 MG TAB ONE (10:31)
--- NOTE | 2022-08-20 11:28 | RAD REPORT ---
EXAM DESCRIPTION: MRI - MRA Head Wo Cont - 08/20/2022 10:48 am CLINICAL HISTORY: Seizure, facial droop, stroke protocol COMPARISON: CT head 08/19/2022, MRI brain 08/20/2022 TECHNIQUE: Axial and coronal 3D [id number] image acquisition was performed. 3D rotational images were generated with source and reconstruction images reviewed. Horizontal and vertical axis rotation al views generated using MIP protocol. FINDINGS: Major venous sinuses are patent. No aneurysm or vascular malformation present. There is no vasculitis are diffuse vascular process timothy ntifiable. Scattered atherosclerotic changes are present relatively mild in degree. No named branch o cclusion. IMPRESSION: Mild atherosclerotic change with no named branch occlusion, significant stenosis or othe r significant intracranial vascular finding.
--- NOTE | 2022-08-20 11:30 | RAD REPORT ---
EXAM DESCRIPTION: MRI - Brain W/Wo Cont - 08/20/2022 11:01 am CLINICAL HISTORY: facial droop, seizure new onset COMPARISON: MRA Head Wo Cont dated 08/20/2022; MRA Neck W/Wo Cont dated 08/20/2022 TECHNIQUE: Sagittal and axial T1-weighted images were obtained. Axial PD/heavily T2-weighted and T2- FLAIR images were obtained along with axial DWI/ADC mapping sequences. Coronal heavily T2 weighted s equence obtained. Axial and coronal post-contrast T1-weighted images were also obtained. A 12 ml Mul tihance contrast following utilized. FINDINGS: No intracranial hemorrhage, mass or acute infarction. There is no edema or shift of midli ne structures. No extra-axial fluid collections. Ernandez-matter/white matter junction is preserved. Sig nal voids are seen as a normal finding in the major intracranial vessels. Nonenhancing T2 white matte r signal abnormalities noted in the each cerebral hemisphere typical for mild chronic ischemic change . Atrophy changes are mild as well with ventricles in proportion to volume loss. Brainstem, thalamus and basal ganglia tissues spared any measurable chronic ischemic change. Post-contrast images show normal enhancement. No dural thickening. Mastoid air cells and paranasal sinuses are clear. No globe or orbital content abnormality. No sella or supra sella abnormality. There is no tonsillar e ctopia. IMPRESSION: No infarction or other acute intracranial finding identifiable. Mild atrophy and cerebral white matter chronic ischemic change.
--- NOTE | 2022-08-20 12:10 | RAD REPORT ---
EXAM DESCRIPTION: MRI - MRA Neck W/Wo Cont - 08/20/2022 10:54 am CLINICAL HISTORY: Stroke protocol, seizure, facial droop COMPARISON: MRI brain same date, MRA head same date TECHNIQUE: MR angiography of the cervical vasculature performed. Coronal imaging plane acquisition u tilized. A 12th MultiHance contrast volume was utilized. Coronal reformatted images were generated an d reviewed. Vertical axis 3D rotational projections obtained using maximum intensity projection adeline col. FINDINGS: Aortic arch is bovine configuration. No great vessel origins stenoses. No vertebral artery origin stenoses identified. Left vertebral artery is dominant as a normal variant. No dissection or significant finding of the vertebrobasilar vasculature. Common carotid arteries show no significant disease. Atherosclerotic changes are present at each francois tid bulb and extending into the proximal aspect of each internal carotid artery. Approximately 40% st enosis seen on the left side at the bulb ICA junction. Approximately 50% stenosis seen at the right b ulb ICA junction. More distally the internal carotid arteries show no significant findings. Subclavian arteries are unremarkable. IMPRESSION: Bilateral carotid bulb and proximal ICA atherosclerotic changes are present with approxi mately 40% left-side stenosis and 50% right-sided stenosis at the bulb-ICA junctions. Small bilateral pleural effusions are present, incompletely evaluated.
--- NOTE | 2022-08-20 12:26 | EKG ---
Test Date: 2022-08-19 Test Time: 20:41:05 Chair Inspector And Leveler: RV MEASUREMENT RESULTS: Intervals: Rate: 70 TN: 160 QRSD: 90 QT: 424 QTc: 457 [place]: P: 87 TN: 160 QRS: 72 T: 95 INTERPRETIVE STATEMENTS: Normal sinus rhythm T wave abnormality, consider anterior ischemia Abnormal ECG Compared to ECG 08/09/2022 19:40:22 T-wave abnormality now present Sinus tachycardia no longer present ST (T wave) deviation no longer present Possible ischemia still present Electronically Signed On 08-20-22 12:24:42 MATH COACH by Sav Asher
[2022-08-20 17:55] LABS: Specific Gravity 1.019 (1.005-1.030); Urine Bacteria None Seen /HPF (<20); Urine Bilirubin NEGATIVE (Negative); Urine Blood Negative (Negative); Urine Clarity Clear (Clear); Urine Color Light-Yellow (Yellow); Urine Glucose NEGATIVE (Negative); Urine Protein NEGATIVE (Negative); Urine RBC <5 /HPF (None Seen); Urine Urobilinogen Normal (Normal); Urine pH 6.5 (5.0-7.0)
--- NOTE | 2022-08-20 18:50 | P.PN ---
Subjective Date of Service: 08/20/22 Primary Care Provider: Lester Chief Complaint: Seizure- New Onset Patient is awake and alert and denies any complaint. No seizure episode since admission. Physical Examination - Vital Signs Temperature: 97.6 F Blood Pressure: 116/56 Pulse: 68 Respirations: 17 Pulse Ox (%): 96 - Studies Laboratory Data (last 24 hrs) 08/19/22 20:29: PT 11.7, INR 1.06, APTT 25.2 08/19/22 20:29: WBC 8.00, Hgb 10.4 L, Hct 30.6 L, Plt Count 180 08/19/22 20:29: Sodium 131 L, Potassium 3.3 L, BUN 18, Creatinine 0.94, Glucose 218 H, Magnesium 2.1, Total Bilirubin 0.5, AST 101 H, ALT 66 H, Alkaline Phosphatase 120 H Assessment And Plan - Current Problems (Diagnosis) (1) Seizure Current Visit: Yes Status: Acute (2) Lung cancer Current Visit: Yes Status: Chronic Qualifiers: Laterality: unspecified laterality Lung location: overlapping sites Qualified Code(s): C34.80 - Malignant neoplasm of overlapping sites of unspecified bronchus and lung (3) Liver cancer Current Visit: No Status: Chronic Qualifiers: Liver malignancy type: unspecified liver malignancy Qualified Code(s): C22.9 - Malignant neoplasm of liver, not specified as primary or secondary - Plan Physical Exam General: Other (Sleepy but arousable) HEENT: Atraumatic, PERRLA, EOMI Neck: Supple, 2+ carotid pulse no bruit Respiratory: Diminished Cardiovascular: Regular rate/rhythm, Normal S1 S2 Gastrointestinal: Normal bowel sounds, No tenderness Musculoskeletal: No tenderness Integumentary: No rashes Neurological: Normal speech, Sensation intact. Plan: Patient is apparently on hospice for her cardiac problem but not for the lung cancer with liver metastasis according to the family. Family is still undergoing palliative chemotherapy as opposed to continue in August. Family also feels patient had a seizure because she has not been taking her olanzapine. MRI of the brain shows no metastasis or acute CVA. Obtain EEG Neurology consult. Ativan as needed for seizures. Family state patient has been eating with aspiration and has been tolerating her meals. Diet as tolerated. Resume other home medications Continue Levaquin and Diflucan prescribed for aspiration pneumonia previous hospitalization.
[2022-08-20] MEDS ORDERED: LORazepam 2 MG/ML VIAL IV PRN (18:59)
[2022-08-20] MEDS ORDERED: TRAZODONE 50 MG TABLET PO PRN (19:01)
[2022-08-20] MEDS ORDERED: CETIRIZINE HCL 5 MG TABLET PO PRN (19:04)
[2022-08-20] MEDS ORDERED: OLANZapine 10 MG TABLET PO SCH (21:00)
[2022-08-21 04:16] LABS: Absolute Lymphocytes (CBC) 0.5 K/uL (0.7-4.9); Hematocrit 29.7 % (36.0-45.0); Lymphocytes % 6.5 % (15.3-44.8); MCV 92.8 fL (80-100); MPV 6.6 fL (7.6-11.3)
[2022-08-21 04:33] LABS: Albumin 2.2 g/dL (3.4-5.0); Bilirubin Total 0.5 mg/dL (0.2-1.0); Potassium 3.7 mmol/L (3.5-5.1); Protein, Total 4.8 g/dL (6.4-8.2)
[2022-08-21] MEDS ORDERED: LEVOTHYROXINE SOD 0.125 MG TAB PO SCH (06:30)
[2022-08-21] MEDS ORDERED: POTASSIUM CL SA 10 MEQ TAB PO ONE (06:30)
[2022-08-21] MEDS: FLUCONAZOLE 100 MG TAB PO SCH (08:55)
[2022-08-21] MEDS: levoFLOXacin 750 MG TAB PO SCH (08:55)
[2022-08-21] MEDS ORDERED: ROSUVASTATIN 10 MG TAB PO SCH (09:00)
[2022-08-21] MEDS ORDERED: levETIRAcetam 500 MG TAB PO SCH (09:00)
[2022-08-21] MEDS ORDERED: ROFLUMILAST 500 MCG TABLET PO SCH (09:00)
[2022-08-21] MEDS ORDERED: FUROSEMIDE 20 MG TABLET PO SCH (09:00)
[2022-08-21] MEDS ORDERED: LIOTHYRONINE SOD 5 MCG TAB PO SCH (09:00)
[2022-08-21 12:16] VITALS: BP 112/54; TEMP 97.7
[2022-08-21 13:31] VITALS: O2SAT 98
--- NOTE | 2022-08-21 14:28 | P.DS ---
Admission Date: 08/19/22 Discharge Date: 08/21/22 Primary Care Provider: Lester Disposition: TRANSFER TO CUSTODIAL Discharge Condition: FAIR Reason for Admission: Seizure- New Onset - Problems (1) Seizure Current Visit: Yes Status: Acute (2) Lung cancer Current Visit: Yes Status: Chronic Qualifiers: Laterality: unspecified laterality Lung location: overlapping sites Qualified Code(s): C34.80 - Malignant neoplasm of overlapping sites of unspecified bronchus and lung (3) Liver cancer Current Visit: No Status: Chronic Qualifiers: Liver malignancy type: unspecified liver malignancy Qualified Code(s): C22.9 - Malignant neoplasm of liver, not specified as primary or secondary Brief History of Present Illness: Patient is a 71-year-old female with past medical history of COPD, hypertension, stage IV lung cancer with mets to the liver on chemotherapy who presented to the emergency department following a witnessed seizure. Patient does not have a known history of epilepsy. She was recently hospitalized and treated for pneumonia and discharged on PO levaquin. Family reports that she has not been acting like herself since discharge, and has progressively gotten more lethargic/confused. They state that today they noticed a facial droop before she seized. Imaging is negative for acute findings today. Labs are significant for sodium 131, potassium 3.3, chloride 87, bicarb 34, glucose 218, lactate 3 with repeat of 1.9, AST 101, ALT 66, alk phos 120, CK 560, BNP 2265. Vital signs have been stable. Patient is admitted for further management. Hospital Course: Patient admitted to the medical floor. She was previously discharged with antibiotics for pneumonia-Levaquin and Diflucan which were continued during the hospital stay. She had no seizure episodes. Her vitals were stable. MRI of the brain was negative for acute CVA. Patient seen and evaluated by neurology Dr. Osullivan who recommended low-dose Keppra 250 mg twice daily and follow-up with Dr. Osullivan as outpatient for EEG. Patient is currently at baseline and deemed stable for discharge. Vital Signs/Physical Exam: Temp Pulse Resp BP Pulse Ox 97.7 F 87 19 112/54 L 90 L 08/21/22 12:00 08/21/22 12:00 08/21/22 12:00 08/21/22 12:00 08/21/22 12:00 General: Alert, In no apparent distress, Oriented x3 HEENT: Mucous membr. moist/pink Neck: JVD not distended Respiratory: Normal air movement, Diminished Cardiovascular: Regular rate/rhythm, Normal S1 S2 Gastrointestinal: Soft and benign, Non-distended Integumentary: No cyanosis Neurological: Other (No focal motor deficit) Laboratory Data at Discharge: WBC 8.30 K/uL (4.3-10.9) 08/21/22 03:44 Hgb 9.9 g/dL (12.0-15.0) L 08/21/22 03:44 Hct 29.7 % (36.0-45.0) L 08/21/22 03:44 Plt Count 177 K/uL (152-406) 08/21/22 03:44 PT 11.7 SECONDS (9.5-12.5) 08/19/22 20:29 INR 1.06 08/19/22 20:29 APTT 25.2 SECONDS (24.3-36.9) 08/19/22 20:29 Sodium 134 mmol/L (136-145) L 08/21/22 03:44 Potassium 3.7 mmol/L (3.5-5.1) 08/21/22 03:44 BUN 15 mg/dL (7-18) 08/21/22 03:44 Creatinine 0.62 mg/dL (0.55-1.02) 08/21/22 03:44 Glucose 82 mg/dL (74-106) 08/21/22 03:44 Phosphorus 3.0 mg/dL (2.5-4.9) 08/20/22 04:57 Magnesium 2.1 mg/dL (1.6-2.4) 08/20/22 04:57 Total Bilirubin 0.5 mg/dL (0.2-1.0) 08/21/22 03:44 AST 65 U/L (15-37) H 08/21/22 03:44 ALT 50 U/L (13-56) 08/21/22 03:44 Alkaline Phosphatase 101 U/L (45-117) 08/21/22 03:44 Home Medications: Cetirizine HCl [Zyrtec*] 5 mg PO DAILY PRN 11/07/15 Levothyroxine Sodium [Unithroid] 125 mcg PO DAILY 11/07/15 Acetaminophen [Tylenol Arthritis] 650 mg PO BID PRN 08/10/22 Albuterol Sulfate [Albuterol Sulfate 0.083% Neb Soln] 1 aero NEB PRN PRN 08/10/22 Cannabis 0.5 ml SL DAILY 08/10/22 Donepezil HCl 10 mg PO BID 08/10/22 Fluticasone/Umeclidin/Vilanter [Trelegy Ellipta 100-62.5-25] 100 aero NEB Q24H 08/10/22 Furosemide 20 mg PO Q24H 08/10/22 Liothyronine Sodium [Cytomel] 5 mcg PO 08/10/22 Midodrine HCl 5 mg PO DAILY 08/10/22 Roflumilast [Daliresp] 500 mcg PO DAILY 08/10/22 Rosuvastatin Calcium 5 mg PO DAILY 08/10/22 Sertraline [Zoloft*] 100 mg PO DAILY 08/10/22 Trazodone [Desyrel*] 50 mg PO DAILY 08/10/22 Fluconazole 200 mg PO DAILY 9 Days #9 tab 08/16/22 levoFLOXacin [Levaquin*] 750 mg PO DAILY 9 Days #9 tab 08/16/22 Ensure Enlive 237 ml PO BID can 08/21/22 Levetiracetam [Keppra] 250 mg PO BID #60 tab 08/21/22 OLANZapine [Zyprexa*] 10 mg PO BEDTIME 08/21/22 New Medications: Levetiracetam [Keppra] 250 mg PO BID #60 tab Followup: Matthew Batista MD [Primary Care Provider] - Time spent managing pt's care (in minutes): 35
[2022-08-21] MEDS ORDERED: ENSURE ENLIVE 237 ML CAN PO SCH (21:00)
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
== END 2022-08-21 16:04 | disposition hospice, inpatient (51) | DRG 100 ==
LOC: ER 18:43 → ERHOLD 22:09 → 4TH 08-20 16:39
PROVIDERS: ADMIT Internal Medicine; ATTEND Internal Medicine
DX: G40.89 Other seizures (principal); J18.9 Pneumonia, unspecified organism; C34.80 Malignant neoplasm of overlapping sites of unspecified bronchus and lung; C78.7 Secondary malignant neoplasm of liver and intrahepatic bile duct; J43.9 Emphysema, unspecified; I10 Essential (primary) hypertension; E86.0 Dehydration; E03.9 Hypothyroidism, unspecified; E87.6 Hypokalemia; E78.00 Pure hypercholesterolemia, unspecified; D63.0 Anemia in neoplastic disease; F17.200 Nicotine dependence, unspecified, uncomplicated; R13.10 Dysphagia, unspecified; Z88.8 Allergy status to other drugs, medicaments and biological substances; Z79.52 Long term (current) use of systemic steroids; Z90.710 Acquired absence of both cervix and uterus; Z79.890 Hormone replacement therapy; Z79.899 Other long term (current) drug therapy; Z20.822 Contact with and (suspected) exposure to COVID-19
CPT/HCPCS: 36415; 70450; 70544; 70549; 70553; 71045; 74177; 80048; 80053; 80076; 81001; 81003; 82550; 83605; 83735; 83880; 84100; 84484; 85025; 85610; 85730; 87040; 87811; 93005; 94760; 97161; 97530; 99285; A9577; J3480; J7613; J7644; Q9967